=== PATIENT | female | born 1955 | race African-American/Black ===

== ENCOUNTER 2016-10-27 12:19 | Outpatient (CLI) ==
[2016-10-27 12:53] LABS: BASOPHILS % (AUTO) 0.6 % (0.0-3.0); EOSINOPHILS % (AUTO) 0.2 % (0.0-7.0); HEMATOCRIT 39.6 % (37.0-47.0); HEMOGLOBIN 13.9 g/dl (12.0-16.0); IMMATURE GRANULOCYTE % (AUTO) 0.8 % (0.0-5.0); LYMPHOCYTES # (AUTO) 0.9 K/uL (0.60-3.4); MEAN CORPUSCULAR HEMOGLOBIN 31.5 pg (27.0-31.0); MEAN CORPUSCULAR HGB CONC 35.1 (31.8-35.4); MEAN CORPUSCULAR VOLUME 89.8 fl (81.0-99.0); MONOCYTES # (AUTO) 0.7 K/uL (0.4-2.0); MONOCYTES % (AUTO) 13.7 (0-10); NEUTROPHILS # (AUTO) 3.3 K/ul (2.0-6.9); NEUTROPHILS % (AUTO) 66.7; PLATELET COUNT 410 10^3/uL (140-440); RED BLOOD COUNT 4.41 10^6/ul (4.20-5.40); WHITE BLOOD COUNT 4.88 K/ul (4.6-10.2)
[2016-10-27 12:58] LABS: BILIRUBIN,URINE Negative (NEGATIVE); KETONES,URINE Negative (NEGATIVE); LEUKOCYTE ESTERASE ,URINE Negative (NEGATIVE); NITRITE,URINE Negative (NEGATIVE); PH,URINE 5.5 (5-9); PROTEIN,URINE Negative (NEGATIVE); URINE, BLOOD 1+ (NEGATIVE)
[2016-10-27 12:59] LABS: ADD URINE MICROSCOPIC YES
[2016-10-27 13:05] LABS: ALBUMIN 3.9 g/dL (3.4-5.0); ALBUMIN/GLOBULIN RATIO 0.93; ANION GAP 15.3; BILIRUBIN,TOTAL 0.52 mg/dL (0.00-1.20); BUN/CREATININE RATIO 9.33; CALCIUM 9.6 mg/dL (8.2-10.2); CHOL/HDL RATIO 2.7 (4.5-5.5); CREATININE 0.75 mg/dL (0.60-1.30); POTASSIUM 4.3 mmol/L (3.5-5.10); TOTAL PROTEIN 8.1 g/dL (5.8-8.1)
== END 2016-10-27 12:20 | disposition home or self-care (01) ==
LOC: LAB 12:19
PROVIDERS: ATTEND General Practice
DX: I10 Essential (primary) hypertension (principal); M54.5 Low back pain; F10.20 Alcohol dependence, uncomplicated; R31.9 Hematuria, unspecified; D72.819 Decreased white blood cell count, unspecified; D64.9 Anemia, unspecified; D72.821 Monocytosis (symptomatic); E87.1 Hypo-osmolality and hyponatremia; E87.8 Other disorders of electrolyte and fluid balance, not elsewhere classified; M81.0 Age-related osteoporosis without current pathological fracture; F17.200 Nicotine dependence, unspecified, uncomplicated; Z79.899 Other long term (current) drug therapy
CPT/HCPCS: 36415; 80053; 80061; 81001; 85025

== ENCOUNTER 2016-11-03 11:37 | Outpatient (CLI) | END 2016-11-03 11:38 | disposition home or self-care (01) | LOC: LAB 11:37 | PROVIDERS: ATTEND General Practice | DX: R73.9 Hyperglycemia, unspecified (principal); E55.9 Vitamin D deficiency, unspecified | CPT/HCPCS: 36415; 82306; 83036 ==

== ENCOUNTER 2016-11-04 08:14 | Outpatient (CLI) ==
--- NOTE | 2016-11-04 09:20 | US ---
EXAM: Ultrasound retroperitoneal complete. HISTORY: Hematuria. COMPARISON: Abdominal CT 10/22/1989. TECHNIQUE: Multiple bal scale and color Doppler images. FINDINGS: Right kidney measures 11.7 x 4.8 x 4.8 cm. The left kidney measures 10.2 x 5.5 x 4.4 cm. Corticomedullary differentiation is normal. There is no hydronephrosis. Urinary bladder is unremarkable. IMPRESSION: No acute sonographic abnormality of the kidneys or bladder.
== END 2016-11-04 08:15 | disposition home or self-care (01) ==
LOC: RAD 08:14
PROVIDERS: ATTEND General Practice
DX: R31.9 Hematuria, unspecified (principal)
CPT/HCPCS: 76770

== ENCOUNTER 2016-12-30 11:25 | Outpatient (CLI) ==
[2016-12-30 12:42] LABS: BASOPHILS # (AUTO) 0.1 K/uL (0-0.2); BASOPHILS % (AUTO) 1.5 % (0.0-3.0); EOSINOPHILS % (AUTO) 1.2 % (0.0-7.0); HEMOGLOBIN 13.5 g/dl (12.0-16.0); IMMATURE GRANULOCYTE % (AUTO) 0.9 % (0.0-5.0); LYMPHOCYTES # (AUTO) 1.3 K/uL (0.60-3.4); MEAN CORPUSCULAR HEMOGLOBIN 32.1 pg (27.0-31.0); MEAN CORPUSCULAR HGB CONC 35.5 (31.8-35.4); MEAN CORPUSCULAR VOLUME 90.5 fl (81.0-99.0); MONOCYTES # (AUTO) 0.5 K/uL (0.4-2.0); MONOCYTES % (AUTO) 14.2 (0-10); NEUTROPHILS # (AUTO) 1.5 K/ul (2.0-6.9); NEUTROPHILS % (AUTO) 44.2; PLATELET COUNT 370 10^3/uL (140-440); WHITE BLOOD COUNT 3.32 K/ul (4.6-10.2)
[2016-12-30 12:49] LABS: BILIRUBIN,URINE Negative (NEGATIVE); KETONES,URINE Negative (NEGATIVE); LEUKOCYTE ESTERASE ,URINE Negative (NEGATIVE); NITRITE,URINE Negative (NEGATIVE); PROTEIN,URINE Negative (NEGATIVE); URINE, BLOOD Trace-lysed (NEGATIVE)
[2016-12-30 12:55] LABS: ALBUMIN 3.7 g/dL (3.4-5.0); ALBUMIN/GLOBULIN RATIO 0.97; ANION GAP 19.1; BILIRUBIN,TOTAL 0.31 mg/dL (0.00-1.20); BUN/CREATININE RATIO 9.45; CALCIUM 9.6 mg/dL (8.2-10.2); CHOL/HDL RATIO 3.1 (4.5-5.5); CREATININE 0.74 mg/dL (0.60-1.30); POTASSIUM 4.1 mmol/L (3.5-5.10); TOTAL PROTEIN 7.5 g/dL (5.8-8.1)
[2016-12-30 12:59] LABS: ADD URINE MICROSCOPIC YES
== END 2016-12-30 11:26 | disposition home or self-care (01) ==
LOC: LAB 11:25
PROVIDERS: ATTEND General Practice
DX: D64.9 Anemia, unspecified (principal); D72.819 Decreased white blood cell count, unspecified; D72.821 Monocytosis (symptomatic); E87.1 Hypo-osmolality and hyponatremia; E87.8 Other disorders of electrolyte and fluid balance, not elsewhere classified; I10 Essential (primary) hypertension; M54.5 Low back pain; M81.0 Age-related osteoporosis without current pathological fracture; R31.9 Hematuria, unspecified; F10.20 Alcohol dependence, uncomplicated; R53.83 Other fatigue; F17.200 Nicotine dependence, unspecified, uncomplicated; Z79.899 Other long term (current) drug therapy
CPT/HCPCS: 36415; 80053; 80061; 81001; 85025

== ENCOUNTER 2017-02-23 10:33 | Outpatient (CLI) ==
[2017-02-23 14:11] LABS: BILIRUBIN,URINE Negative (NEGATIVE); KETONES,URINE Negative (NEGATIVE); LEUKOCYTE ESTERASE ,URINE Negative (NEGATIVE); NITRITE,URINE Negative (NEGATIVE); PH,URINE 5.5 (5-9); PROTEIN,URINE Negative (NEGATIVE); URINE, BLOOD Trace-lysed (NEGATIVE)
[2017-02-23 15:10] LABS: ADD URINE MICROSCOPIC YES
== END 2017-02-23 10:34 | disposition home or self-care (01) ==
LOC: LAB 10:33
PROVIDERS: ATTEND General Practice
DX: R31.9 Hematuria, unspecified (principal); Z79.899 Other long term (current) drug therapy; M81.0 Age-related osteoporosis without current pathological fracture
CPT/HCPCS: 36415; 81001; 82306

== ENCOUNTER 2017-04-21 12:43 | Outpatient (CLI) ==
[2017-04-21 13:10] LABS: BASOPHILS % (AUTO) 1.6 % (0.0-3.0); EOSINOPHILS # (AUTO) 0.1 K/ul (0.0-0.7); EOSINOPHILS % (AUTO) 5.5 % (0.0-7.0); HEMATOCRIT 36.3 % (37.0-47.0); HEMOGLOBIN 13.2 g/dl (12.0-16.0); IMMATURE GRANULOCYTE % (AUTO) 0.8 % (0.0-5.0); LYMPHOCYTES # (AUTO) 0.9 K/uL (0.60-3.4); LYMPHOCYTES % (AUTO) 36.6 (10.0-50.0); MEAN CORPUSCULAR HEMOGLOBIN 32.5 pg (27.0-31.0); MEAN CORPUSCULAR HGB CONC 36.4 (31.8-35.4); MEAN CORPUSCULAR VOLUME 89.4 fl (81.0-99.0); MONOCYTES # (AUTO) 0.4 K/uL (0.4-2.0); MONOCYTES % (AUTO) 15.7 (0-10); NEUTROPHILS % (AUTO) 39.8; PLATELET COUNT 346 10^3/uL (140-440); RED BLOOD COUNT 4.06 10^6/ul (4.20-5.40); WHITE BLOOD COUNT 2.54 K/ul (4.6-10.2)
[2017-04-21 13:17] LABS: BILIRUBIN,URINE Negative (NEGATIVE); KETONES,URINE Negative (NEGATIVE); LEUKOCYTE ESTERASE ,URINE Negative (NEGATIVE); NITRITE,URINE Negative (NEGATIVE); PROTEIN,URINE Negative (NEGATIVE); URINE, BLOOD Trace-lysed (NEGATIVE)
[2017-04-21 13:31] LABS: ADD URINE MICROSCOPIC YES
[2017-04-21 13:52] LABS: ALBUMIN 3.6 g/dL (3.4-5.0); ALBUMIN/GLOBULIN RATIO 1.09; ANION GAP 17.5; BILIRUBIN,TOTAL 0.57 mg/dL (0.00-1.20); CALCIUM 9.8 mg/dL (8.2-10.2); CREATININE 0.58 mg/dL (0.60-1.30); POTASSIUM 4.5 mmol/L (3.5-5.10); TOTAL PROTEIN 6.9 g/dL (5.8-8.1)
[2017-04-21 13:53] LABS: BUN/CREATININE RATIO 8.62; CHOL/HDL RATIO 2.7 (4.5-5.5)
== END 2017-04-21 12:44 | disposition home or self-care (01) ==
LOC: LAB 12:43
PROVIDERS: ATTEND General Practice
DX: R00.0 Tachycardia, unspecified (principal); M54.5 Low back pain; I10 Essential (primary) hypertension; E78.5 Hyperlipidemia, unspecified; D72.819 Decreased white blood cell count, unspecified; M81.0 Age-related osteoporosis without current pathological fracture; E87.1 Hypo-osmolality and hyponatremia; E87.8 Other disorders of electrolyte and fluid balance, not elsewhere classified; D72.821 Monocytosis (symptomatic); D64.9 Anemia, unspecified; F10.20 Alcohol dependence, uncomplicated; R31.9 Hematuria, unspecified; F17.200 Nicotine dependence, unspecified, uncomplicated
CPT/HCPCS: 36415; 80053; 80061; 81001; 84443; 85025

== ENCOUNTER 2017-07-20 10:19 | Outpatient (CLI) ==
[2017-07-20 10:41] LABS: BASOPHILS % (AUTO) 1.1 % (0.0-3.0); EOSINOPHILS % (AUTO) 0.8 % (0.0-7.0); HEMATOCRIT 37.2 % (37.0-47.0); HEMOGLOBIN 13.6 g/dl (12.0-16.0); IMMATURE GRANULOCYTE % (AUTO) 0.5 % (0.0-5.0); LYMPHOCYTES # (AUTO) 0.9 K/uL (0.60-3.4); LYMPHOCYTES % (AUTO) 22.9 (10.0-50.0); MEAN CORPUSCULAR HEMOGLOBIN 33.2 pg (27.0-31.0); MEAN CORPUSCULAR HGB CONC 36.6 (31.8-35.4); MEAN CORPUSCULAR VOLUME 90.7 fl (81.0-99.0); MONOCYTES # (AUTO) 0.6 K/uL (0.4-2.0); MONOCYTES % (AUTO) 15.2 (0-10); NEUTROPHILS # (AUTO) 2.2 K/ul (2.0-6.9); NEUTROPHILS % (AUTO) 59.5; PLATELET COUNT 347 10^3/uL (140-440); WHITE BLOOD COUNT 3.76 K/ul (4.6-10.2)
== END 2017-07-20 10:20 | disposition home or self-care (01) ==
LOC: LAB 10:19
PROVIDERS: ATTEND General Practice
DX: D72.819 Decreased white blood cell count, unspecified (principal)
CPT/HCPCS: 36415; 85025

== ENCOUNTER 2017-09-21 13:08 | Outpatient (CLI) | END 2017-09-21 13:09 | disposition home or self-care (01) | LOC: LAB 13:08 | PROVIDERS: ATTEND General Practice | DX: E78.5 Hyperlipidemia, unspecified (principal); I10 Essential (primary) hypertension; Z79.899 Other long term (current) drug therapy | CPT/HCPCS: 36415; 80053; 80061; 81001; 85025; 87086 ==

== ENCOUNTER 2017-11-19 13:17 | Outpatient (CLI) | END 2017-11-19 13:18 | disposition home or self-care (01) | LOC: FCC-LAB 13:17 | PROVIDERS: ATTEND General Practice | DX: R74.0 Nonspecific elevation of levels of transaminase and lactic acid dehydrogenase [LDH] (principal); D64.9 Anemia, unspecified; D72.819 Decreased white blood cell count, unspecified; F10.20 Alcohol dependence, uncomplicated; F11.90 Opioid use, unspecified, uncomplicated | CPT/HCPCS: 36415; 80076; 80306; 85025 ==

== ENCOUNTER 2018-01-13 10:25 | Outpatient (CLI) | END 2018-01-13 10:26 | disposition home or self-care (01) | LOC: FCC-LAB 10:25 | PROVIDERS: ATTEND General Practice | DX: D64.9 Anemia, unspecified (principal); D72.821 Monocytosis (symptomatic); E87.8 Other disorders of electrolyte and fluid balance, not elsewhere classified; E87.1 Hypo-osmolality and hyponatremia; M54.5 Low back pain; M81.0 Age-related osteoporosis without current pathological fracture; I10 Essential (primary) hypertension; Z79.899 Other long term (current) drug therapy | CPT/HCPCS: 36415; 80053; 80061; 81001; 84443; 85025; 87086 ==

== ENCOUNTER 2018-03-22 09:22 | Outpatient (CLI) | END 2018-03-22 09:23 | disposition home or self-care (01) | LOC: FCC-LAB 09:22 | PROVIDERS: ATTEND General Practice | DX: R31.9 Hematuria, unspecified (principal); D72.819 Decreased white blood cell count, unspecified; D64.9 Anemia, unspecified; D72.821 Monocytosis (symptomatic); E87.8 Other disorders of electrolyte and fluid balance, not elsewhere classified; E87.1 Hypo-osmolality and hyponatremia; I10 Essential (primary) hypertension; Z79.899 Other long term (current) drug therapy | CPT/HCPCS: 36415; 80053; 80061; 81001; 85025; 87086 ==

== ENCOUNTER 2018-06-22 08:14 | Outpatient (CLI) ==
--- NOTE | 2018-06-23 08:52 | MAMMO ---
EXAM: Bilateral digital screening mammogram (2-D and 3-D) History: Screening Comparison: Bilateral mammogram 06/19/2017 Findings: MLO and CC views of bilateral breasts demonstrate heterogeneously dense breast parenchyma which can obscure small lesions. CAD was reviewed by the radiologist. Tomosynthesis was performed. Postoperative changes again seen within the left breast. There are no dominant masses, no suspiciou s microcalcifications and no architectural distortions Impression: Benign stable mammogram. Recommend followup routine screening mammography in 1 year. BIRADS 2
== END 2018-06-22 08:15 | disposition home or self-care (01) ==
LOC: RAD 08:14
PROVIDERS: ATTEND Internal Medicine Hematology & Oncology
DX: Z12.31 Encounter for screening mammogram for malignant neoplasm of breast (principal)

== ENCOUNTER 2018-06-28 09:31 | Outpatient (CLI) | END 2018-06-28 09:32 | disposition home or self-care (01) | LOC: RHC-LAB 09:31 | PROVIDERS: ATTEND General Practice | DX: R31.9 Hematuria, unspecified (principal); E78.5 Hyperlipidemia, unspecified | CPT/HCPCS: 36415; 80053; 80061; 81001; 85025 ==

== ENCOUNTER 2018-08-30 08:15 | Outpatient (CLI) | END 2018-08-30 08:16 | disposition home or self-care (01) | LOC: RHC-LAB 08:15 | PROVIDERS: ATTEND General Practice | DX: D72.819 Decreased white blood cell count, unspecified (principal); D64.9 Anemia, unspecified; D72.821 Monocytosis (symptomatic); I10 Essential (primary) hypertension; F17.200 Nicotine dependence, unspecified, uncomplicated; Z79.899 Other long term (current) drug therapy | CPT/HCPCS: 36415; 80053; 80061; 81001; 85025 ==

== ENCOUNTER 2018-09-24 11:32 | Outpatient (CLI) | END 2018-09-24 11:33 | disposition home or self-care (01) | LOC: RHC-LAB 11:32 | PROVIDERS: ATTEND General Practice | DX: R05 Cough (principal); J02.9 Acute pharyngitis, unspecified | CPT/HCPCS: 87502; 87651 ==

== ENCOUNTER 2018-10-13 06:41 | Outpatient (CLI) ==
--- NOTE | 2018-10-13 09:29 | ECHO2D ---
Date of Exam: 10/13/18 Ordering Physician:DR. KULWINDER WHITLEY Room #: OP Reason for Echo: CARDIAC MURMUR, HYPERTENSION M-Mode Normal Adult Results LV Dimensions Normal Adult Results AoV Opening excursions >1.6 >1.6 LVEDD-base- 3.5-5.8 4.1 Ao root dimensions 2.0-3.7 3.2 LVESD-base- 3.1-4.6 L. Atrium dimensions 1.9-3.8 3.2 Post. Wall thickness 0.8-1.1 0.9 IV septum (thickness) 0.7-1.2 0.9 Post. Wall excursion 0.72-1.3 NORMAL Septal motion NORMAL Systolic motion R. Ventricular cavity 1.5-2.0 NORMAL LVEF 60% 50% Paradoxical septal wall motion NORMAL 2-D : 2-D M Mode Echocardiogram was performed using apical four chamber and left parasternal long and short axis views. Mitral, tricuspid and aortic valves appear to be normal. Contractility of the left ventricle seems to be normal, so is the cavity size. Left atrial cavity size and aortic root appear to be normal. There is no pericardial effusion. There is no thrombus noted in the left ventricular or left aortic cavity. No mitral valve prolapse noted. M-MODE: MV: NORMAL AV: NORMAL TV: NORMAL PV: CHAMBER SIZE: NORMAL WALL MOTION: NORMAL PERICARDIUM: NORMAL INTERPRETATION: 1. NORMAL 2 "D" "M" MODE ECHO MTDD
== END 2018-10-13 06:42 | disposition home or self-care (01) ==
LOC: CAR 06:41
PROVIDERS: ATTEND General Practice
DX: R01.1 Cardiac murmur, unspecified (principal)

== ENCOUNTER 2018-12-20 09:02 | Outpatient (CLI) | END 2018-12-20 09:03 | disposition home or self-care (01) | LOC: RHC-LAB 09:02 | PROVIDERS: ATTEND General Practice | DX: D72.819 Decreased white blood cell count, unspecified (principal); D64.9 Anemia, unspecified; Z79.899 Other long term (current) drug therapy | CPT/HCPCS: 36415; 80053; 80061; 85025 ==

== ENCOUNTER 2023-02-01 16:24 | Observation (INO) ==
[2023-02-01] MEDS ORDERED: ZOFRAN 4 MG/2 ML IVP ONE (16:35)
[2023-02-01] MEDS ORDERED: SODIUM CHLORIDE 1,000 ML IV STA ×3 (16:35→21:32)
--- NOTE | 2023-02-01 16:39 | ED.PDOC ---
General <SARAH KILPATRICK MD - Last Filed: 02/02/23 06:27> ED Provider: Dr. SARAH KILPATRICK MD Chief Complaint: Weakness Stated Complaint: I think I'm dehydrated 67-year-old female presents the emergency department over concerns of dehydration. She reports that she woke up [place] with an upset stomach. She states that she has had 1 episode of diarrhea and multiple episodes of emesis. Her son got her electrolytes and Pedialyte. She states she was doing better, but when she wakes up from a nap she continues to have abdominal pain. Points to her left upper quadrant. States she feels very weak. States she cannot keep anything down. She tried to ride it out at home but ultimately decided to come to the ER for further evaluation. Denies any chest pain or difficulty b reathing. No cough. No pain with urination. Time Seen by Provider: 02/01/23 16:35 Mode of Arrival: Walk-In Information Source: Patient Primary Care Provider: MAC MCADAMS APRN, FNP-C Nursing and Triage Documentation Reviewed and Agree: Yes Does patient meet sepsis criteria?: No System Inflammatory Response Syndrome: Not Applicable Sepsis Protocol: For patient's 13 years and over: Temp is 96.8 and below OR 101 and greater Pulse >90 BPM Resp >20/minute Acutely Altered Mental Status Are patient's symptoms suggestive of a new infection, such as: -Pneumonia -Skin, Soft Tissue -Endocarditis -UTI -Bone, Joint Infection -Implantable Device -Acute Abdominal Infection -Wound Infection -Meningitis -Blood Stream Catheter Infection -Unknown Review of Systems <SARAH KILPATRICK MD - Last Filed: 02/02/23 06:27> Review Of Systems Constitutional: Reports Weakness GI: Reports Abdominal pain, Diarrhea, Nausea, Poor fluid intake and Vomiting All Other Systems: Reviewed and Negative PFSH <SARAH KILPATRICK MD - Last Filed: 02/02/23 06:27> Medical History (Updated 02/02/23 @ 14:25 by YARELIS AVILEZ-C) Anemia D64.9 - Anemia, unspecified (ICD-10) Breast CA C50.919 - Malignant neoplasm of unspecified site of unspecified female charito ast (ICD-10) Dyslipidemia (01/01/17) E78.5 - Hyperlipidemia, unspecified (ICD-10) Essential hypertension (12/10/15) I10 - Essential (primary) hypertension (ICD-10) GERD (gastroesophageal reflux disease) (05/14/17) K21.9 - Gastro-esophageal reflux disease without esophagitis (ICD-10) Hyponatremia (08/09/15) E87.1 - Hypo-osmolality and hyponatremia (ICD-10) Osteoporosis (09/26/15) M81.0 - Age-related osteoporosis without current pathological fracture (ICD- 10) Pancreatitis K85.90 - Acute pancreatitis without necrosis or infection, unspecified (ICD- 10) Vitamin B 12 deficiency E53.8 - Deficiency of other specified B group vitamins (ICD-10) Family History Mother Diabetes Heart attack FATHER Diabetes Heart attack Social History Smoking and tobacco status: Current every day smoker Tobacco type: cigarettes Smoking packs per day: 1 Tobacco: How many years used: 9 Quit status: not considering quitting Smoking risk assessment performed: Yes Alcohol intake: current Alcohol intake frequency: 3 or more drinks per day Alcohol type: beer Counseling given: No Substance use type: does not use Counseling given: No Ashley/caodaism: HOAHAOISM Special ashley needs: No Agree to transfusion: Yes Household members: none Marital status: W / Lives independently: Yes Number of children: 1 Number of grandchildren: 4 Highest education level completed: some college, no degree service: No Current occupational status: retired and disabled Current occupational exposures/hazards: No Pets and animals: Yes (one cat and one dog) History of recent travel: No Sexually active: No Do you think of yourself as: straight/heterosexual Current gender identity: female Seatbelt use: always Water heater temperature set < 120 degrees: Yes Working smoke detector in home: Yes Fire extinguisher in home: Yes Carbon monoxide detector in home: Yes Firearms in home: No Surgical History H/O cataract extraction Z98.49 - Cataract extraction status, unspecified eye (ICD-10) History of breast biopsy Z98.890 - Other specified postprocedural states (ICD-10) Status post hysterectomy Z90.710 - Acquired absence of both cervix and uterus (ICD-10) Female Reproductive History Menstrual Age of Menarche: 12 Hx Hysterectomy: Yes (hysterectomy approx 12/31/2010) Hx Tubal Ligation: No Physical Exam <SARAH KILPATRICK MD - Last Filed: 02/02/23 06:27> Physical Exam Appearance: Reports Well-appearing Ill-appearing: None Pain Distress: None Eyes: Reports EOMI ENT: Reports Oropharynx normal Neck: Supple Respiratory: Reports Airway patent Cardiovascular: Reports Tachycardia GI/: Reports Soft and Tender (RUQ, epigastrum TTP, no rebound or guarding) Musculoskeletal: Reports No edema Skin: Reports Warm and Dry Neurological: Reports Cranial nerves intact, Alert and Oriented Psychiatric: Reports Affect appropriate Interpretation <SARAH KILPATRICK MD - Last Filed: 02/02/23 06:27> EKG Interpretation EKG Interpretation By: ED Physician Time of EKG #1: 20:46 Rate: Normal (92) Rhythm: Sinus Ectopy: None [place]: NL ST Segment: Normal Interpretation: EKG ordered and interpreted by ut Critical Care Note <SARAH KILPATRICK MD - Last Filed: 02/02/23 06:27> Critical Care Note Total Critical Care Time (mins): 50 Course <SARAH KILPATRICK MD - Last Filed: 02/02/23 06:27> Course 02/03/23 04:50 02/03/23 04:50 Orders, Labs, Meds: Lab Review 02/01/23 02/01/23 02/01/23 16:40 16:45 22:00 WBC 21.75 H RBC 4.75 Hgb 14.7 Hct 41.6 MCV 87.6 MCH 30.9 MCHC 35.3 RDW Coeff of Jesus 13.1 Plt Count 377 Immature Gran % (Auto) 1.0 Neut % (Auto) 89.6 H Lymph % (Auto) 3.2 L Isabela % (Auto) 5.5 Eos % (Auto) 0.5 Baso % (Auto) 0.2 Neut # (Auto) 19.5 H Lymph # (Auto) 0.7 Isabela # (Auto) 1.2 Eos # (Auto) 0.1 Baso # (Auto) 0.0 Immature Gran # (Auto) 0.2 Neutrophils % (Manual) Lymphocytes % (Manual) Monocytes % (Manual) Anisocytosis Sodium 123.2 L Potassium 3.07 L Chloride 84.6 L Carbon Dioxide 30.3 H Anion Gap 11.37 BUN 5.4 L Creatinine 0.45 L Estimated GFR (MDRD) 168.00 BUN/Creatinine Ratio 12.00 Glucose 133.2 H Lactic Acid 3.83 H 1.19 D Calcium 8.59 Magnesium Total Bilirubin 0.72 AST 42.9 H ALT 41.3 H Alkaline Phosphatase 117.2 C-Reactive Prot, Quant 172 H Total Protein 8.20 Albumin 4.22 Globulin 3.98 Albumin/Globulin Ratio 1.06 Lipase 676.3 H Procalcitonin 1.65 H Urine Color Yellow Urine Clarity Clear Urine pH 7.5 Ur Specific [place] 1.015 Urine Protein 2+ H Urine Glucose (UA) Negative Urine Ketones Negative Urine Blood 2+ H Urine Nitrite Negative Urine Bilirubin Negative Urine Urobilinogen 0.2 Ur Leukocyte Esterase 1+ H Urine Microscopic RBC 0-2 Urine Microscopic WBC 5-10 Ur Squamous Epith Cells 0-2 Ur Renal Epithelial Cell 2-5 Urine Bacteria Trace 02/02/23 07:09 WBC 13.66 H D RBC 4.11 L Hgb 12.6 Hct 36.2 L MCV 88.1 MCH 30.7 MCHC 34.8 RDW Coeff of Jesus 13.2 Plt Count 318 Immature Gran % (Auto) Neut % (Auto) Lymph % (Auto) Isabela % (Auto) Eos % (Auto) Baso % (Auto) Neut # (Auto) Lymph # (Auto) Isabela # (Auto) Eos # (Auto) Baso # (Auto) Immature Gran # (Auto) Neutrophils % (Manual) 85.0 H Lymphocytes % (Manual) 5.0 L Monocytes % (Manual) 10.0 Anisocytosis Not present Sodium 127.5 L Potassium 2.54 L* Chloride 94.8 L Carbon Dioxide 30.7 H Anion Gap 4.54 BUN 2.7 L Creatinine 0.39 L Estimated GFR (MDRD) 198.00 BUN/Creatinine Ratio 6.92 Glucose 83.7 Lactic Acid 0.76 D Calcium 7.27 L Magnesium 1.30 L Total Bilirubin 1.07 AST 38.7 H ALT 17.2 Alkaline Phosphatase 117.2 C-Reactive Prot, Quant Total Protein 6.56 Albumin 3.24 L Globulin 3.32 Albumin/Globulin Ratio 0.97 Lipase Procalcitonin 0.96 H Urine Color Urine Clarity Urine pH Ur Specific [place] Urine Protein Urine Glucose (UA) Urine Ketones Urine Blood Urine Nitrite Urine Bilirubin Urine Urobilinogen Ur Leukocyte Esterase Urine Microscopic RBC Urine Microscopic WBC Ur Squamous Epith Cells Ur Renal Epithelial Cell Urine Bacteria Orders Category Date Time Status PLACE PATIENT OBSERVATION .TO MEDSURG (MONITORED BED ADMISSION 02/02/23 09:51 Active ) BLOOD GLUCOSE MONITORING (MED/SURG) ACCUCHECK Q6H CARE 02/02/23 09:51 Active INTAKE & OUTPUT Q8HR CARE 02/02/23 09:50 Active NPO REMINDER: IMAGING ONCE CARE 02/01/23 16:57 Completed NPO REMINDER: IMAGING ONCE CARE 02/02/23 00:14 Completed TELEMETRY MONITORING TELE CARE 02/02/23 09:52 Active VITAL SIGNS Q4HR CARE 02/02/23 09:50 Active NOTHING BY MOUTH DIETARY 02/02/23 Lunch Ordered ED IV/MEDIPORT/POWERPORT .ONCE EMERGENCY 02/01/23 16:29 Active BLOOD CULTURE (ED ONLY) Stat LAB 02/01/23 18:10 Results C-REACTIVE PROTEIN Stat LAB 02/01/23 16:45 Completed CBC W/ AUTO DIFF DAILY@0600 LAB 02/03/23 04:50 Completed CBC W/ AUTO DIFF DAILY@0600 LAB 02/04/23 06:00 Ordered CBC W/ AUTO DIFF Stat LAB 02/01/23 16:45 Completed CBC W/ AUTO DIFF Timed LAB 02/02/23 07:09 Completed CMP [COMPREHENSIVE METABOLIC PANEL] Stat LAB 02/01/23 16:45 Completed CMP [COMPREHENSIVE METABOLIC PANEL] Stat LAB 02/02/23 07:09 Completed COMPREHENSIVE METABOLIC PANEL DAILY@0600 LAB 02/03/23 04:50 Completed COMPREHENSIVE METABOLIC PANEL DAILY@0600 LAB 02/04/23 06:00 Ordered LACTIC ACID Stat LAB 02/01/23 16:45 Completed LACTIC ACID Stat LAB 02/01/23 22:00 Completed LACTIC ACID Stat LAB 02/02/23 07:09 Completed LIPASE Stat LAB 02/01/23 16:45 Completed MAGNESIUM Stat LAB 02/02/23 07:09 Completed MANUAL DIFFERENTIAL Timed LAB 02/02/23 07:09 Completed PROCALCITONIN Stat LAB 02/01/23 16:45 Completed PROCALCITONIN Stat LAB 02/02/23 07:09 Completed UA [URINALYSIS C & S IF INDICATED] Stat LAB 02/01/23 16:40 Completed URINE CULTURE Stat LAB 02/01/23 16:59 Completed 0.9 % Sodium Chloride [Saline Flush] Meds 02/01/23 16:29 Active 1 syr IVF PRN PRN Acetaminophen [Tylenol] Meds 02/02/23 09:51 Active 650 mg PO Q4H PRN Enoxaparin Sodium [Lovenox] Meds 02/02/23 10:00 Active 30 mg SUBCUT DAILY Fentanyl Citrate/Pf [Sublimaze] Meds 02/01/23 18:26 Discontinued 50 mcg IVP ONCE ONE Magnesium Sulfate Vial [Magnesium Sulfate 1 gm/2 ml Meds 02/02/23 07:47 Discontinued Vial] 6 gm 0.9 % Sodium Chloride [Sodium Chloride 100Ml] 100 ml IV ONCE Magnesium Sulfate in Water [Magnesium Sulf 2 G/50 ml Meds 02/02/23 07:54 Discontinued Bag] 2 gm in 50 ml IV ONCE Metoclopramide HCl [Reglan] Meds 02/02/23 09:54 Active 10 mg IVP Q6H PRN Morphine Sulfate [Morphine 10 mg/ml Syringe] Meds 02/01/23 21:30 Discontinued 8 mg IVP ONCE STA Morphine Sulfate [Morphine 10 mg/ml Syringe] Meds 02/02/23 03:39 Discontinued 8 mg IVP ONCE STA Nicotine 21 mg [Nicoderm 21 mg] Meds 02/01/23 17:46 Discontinued 1 patch TD ONCE ONE Nicotine 21 mg [Nicoderm 21 mg] Meds 02/02/23 09:37 Discontinued 1 patch TD ONCE ONE Nictotine Patch Meds 02/02/23 09:33 Discontinued 21 mg TD ONCE ONE Ondansetron HCl/Pf [Zofran 4 mg/2 ml] Meds 02/01/23 16:35 Discontinued 4 mg IVP ONCE ONE Ondansetron HCl/Pf [Zofran 4 mg/2 ml] Meds 02/01/23 21:30 Discontinued 4 mg IVP ONCE ONE Ondansetron HCl/Pf [Zofran 4 mg/2 ml] Meds 02/02/23 02:37 Discontinued 4 mg IVP ONCE ONE Ondansetron HCl/Pf [Zofran 4 mg/2 ml] Meds 02/02/23 09:54 Active 4 mg IVP Q6H PRN Piperacillin Sodium/Tazobactam [Zosyn 3.375 gm] 3.375 Meds 02/01/23 18:31 Discontinued gm 0.9 % Sodium Chloride [Sodium Chloride 100Ml] 100 ml IV ONCE Piperacillin Sodium/Tazobactam [Zosyn 3.375 gm] 3.375 Meds 02/02/23 12:00 Active gm 0.9 % Sodium Chloride [Sodium Chloride 100Ml] 100 ml IV Q6HR Potassium Chloride [Potassium Chloride 20 Meq/100 ml Meds 02/02/23 07:47 Discontinued Premix] 20 meq in 100 ml IV ONCE Sodium Chloride 0.9% [Sodium Chloride] 1,000 ml Meds 02/02/23 10:00 Discontinued IV 100 mls/hr Sodium Chloride 0.9% [Sodium Chloride] 1,000 ml Meds 02/01/23 21:32 Discontinued IV 150 mls/hr Sodium Chloride 0.9% [Sodium Chloride] 1,000 ml Meds 02/02/23 03:54 Discontinued IV 150 mls/hr Sodium Chloride 0.9% [Sodium Chloride] 1,000 ml Meds 02/01/23 16:35 Discontinued IV BOLUS Sodium Chloride 0.9% [Sodium Chloride] 1,000 ml Meds 02/01/23 17:[address] ABDOMEN/PELVIS W CONTRAST Stat RADS 02/01/23 16:57 Completed US ABDOMEN RT UPPER QUAD [U/S ABDOMEN RT UPPER QUAD] RADS 02/02/23 00:14 Completed Stat Medications Generic Name Dose Route Start Last Admin Trade Name Freq PRN Reason Stop Dose Admin Acetaminophen 650 mg 02/02/23 09:51 Acetaminophen 325 Mg Tablet PO Q4H PRN Mild Pain Enoxaparin Sodium 30 mg 02/02/23 10:00 02/02/23 12:29 Enoxaparin Sodium 30 Mg/0.3 Ml Syr SUBCUT 30 mg DAILY ELIAN Administration Piperacillin Sod/Tazobactam 100 mls @ 100 mls/hr 02/02/23 12:00 02/03/23 05:33 Sod 3.375 gm/ Sodium Chloride IV 02/05/23 11:59 100 mls/hr Q6HR ELIAN Administration Potassium Chloride/Dextrose/Sod Cl 1,000 mls @ 100 mls/hr 02/03/23 07:30 D5%-Ns-Kcl 40 Meq/L Iv Gwendolyn IV .Q10H ELIAN Losartan Potassium 100 mg 02/02/23 13:30 02/02/23 15:20 Losartan Potassium 100 Mg Tablet PO 100 mg DAILY ELIAN Administration Metoclopramide HCl 10 mg 02/02/23 09:54 Metoclopramide Hcl 10 Mg/2 Ml IVP Q6H PRN Nausea / Vomiting Morphine Sulfate 2 mg 02/02/23 12:53 02/03/23 07:29 Morphine Sulfate 2 Mg/Ml Syringe IVP 2 mg Q4H PRN Administration MODERATE PAIN Nicotine 1 patch 02/02/23 15:00 02/02/23 15:20 Nicotine 21 Mg Patch.Td24 TD 1 patch DAILY ELIAN Administration Ondansetron HCl 4 mg 02/02/23 09:54 Ondansetron Hcl/Pf 4 Mg/2 Ml Sdv IVP Q6H PRN Nausea / Vomiting Sodium Chloride 1 syr 02/01/23 16:29 02/02/23 02:43 0.9% Sodium Chloride 10 Ml Disp.Syrin IVF 1 syr PRN PRN Administration To flush IV Discontinued Medications Generic Name Dose Route Start Last Admin Trade Name Freq PRN Reason Stop Dose Admin Dextrose 50 ml 02/02/23 22:19 02/02/23 22:49 Dextrose 50 % In Water 50 Ml Disp.Syrin IVP 02/02/23 22:20 50 ml ONCE STA Administration Fentanyl Citrate 50 mcg 02/01/23 18:26 02/01/23 18:39 Fentanyl 50 Mcg/Ml Sdv IVP 02/01/23 18:27 50 mcg ONCE ONE Administration Sodium Chloride 1,000 mls @ 1,000 mls/hr 02/01/23 16:35 02/01/23 16:55 Sodium Chloride IV 02/01/23 17:34 1,000 mls/hr BOLUS STA Administration Sodium Chloride 1,000 mls @ 1,000 mls/hr 02/01/23 17:53 02/01/23 18:20 Sodium Chloride IV 02/01/23 18:52 1,000 mls/hr BOLUS STA Administration Piperacillin Sod/Tazobactam 100 mls @ 100 mls/hr 02/01/23 18:31 02/01/23 18:43 Sod 3.375 gm/ Sodium Chloride IV 02/01/23 19:30 100 mls/hr ONCE ONE Administration Sodium Chloride 1,000 mls @ 150 mls/hr 02/01/23 21:32 02/01/23 21:41 Sodium Chloride IV 02/02/23 04:11 150 mls/hr .Q6H40M STA Administration Sodium Chloride 1,000 mls @ 150 mls/hr 02/02/23 03:54 02/02/23 03:54 Sodium Chloride IV 02/02/23 10:33 150 mls/hr .Q6H40M ONE Administration Magnesium Sulfate 6 gm/ Sodium 112 mls @ 400 mls/hr 02/02/23 07:47 02/02/23 09:31 Chloride IV 02/02/23 08:03 Not Given ONCE ONE Potassium Chloride 20 meq in 100 mls @ 50 mls/hr 02/02/23 07:47 02/02/23 08:00 Potassium Chloride 20 Meq/100 Ml Premix IV 02/02/23 09:46 50 mls/hr ONCE ONE Administration MAGNESIUM SULFATE IN WATER 2 gm in 50 mls @ 25 mls/hr 02/02/23 07:54 02/02/23 08:21 Magnesium Sulf 2 G/50 Ml Bag IV 02/02/23 09:53 25 mls/hr ONCE ONE Administration Sodium Chloride 1,000 mls @ 100 mls/hr 02/02/23 10:00 02/02/23 13:59 Sodium Chloride IV Not Given .Q10H ELIAN Sodium Chloride 1,000 mls @ 200 mls/hr 02/02/23 12:27 02/02/23 18:14 Sodium Chloride IV 200 mls/hr .Q5H ELIAN Administration Potassium Chloride 40 meq in 200 mls @ 50 mls/hr 02/02/23 15:05 02/02/23 15:52 Potassium Chloride 20 Meq/100 Ml Premix IV 02/02/23 19:04 50 mls/hr ONCE ONE Administration Sodium Chloride 1,000 mls @ 100 mls/hr 02/02/23 18:18 02/02/23 20:01 Sodium Chloride IV Not Given .Q10H ELIAN Dextrose/Sodium Chloride 1,000 mls @ 100 mls/hr 02/02/23 22:30 02/02/23 22:50 Dextrose 5%-Ns Iv Solution IV 100 mls/hr .Q10H ELIAN Administration Potassium Chloride 20 meq in 100 mls @ 50 mls/hr 02/03/23 05:38 02/03/23 06:07 Potassium Chloride 20 Meq/100 Ml Premix IV 02/03/23 07:37 50 mls/hr ONCE ONE Administration Losartan Potassium 0 mg 02/02/23 13:00 02/02/23 13:59 Losartan Potassium 100 Mg Tablet PO Not Given DAILY ELIAN Morphine Sulfate 8 mg 02/01/23 21:30 02/01/23 21:46 Morphine Sulfate 10 Mg/Ml Syringe IVP 02/01/23 21:31 8 mg ONCE STA Administration Morphine Sulfate 8 mg 02/02/23 03:39 02/02/23 03:50 Morphine Sulfate 10 Mg/Ml Syringe IVP 02/02/23 03:40 8 mg ONCE STA Administration Nicotine 1 patch 02/01/23 17:46 02/01/23 17:55 Nicotine 21 Mg Patch.Td24 TD 02/01/23 17:47 1 patch ONCE ONE Administration Nicotine 1 patch 02/02/23 09:37 02/02/23 09:39 Nicotine 21 Mg Patch.Td24 TD 02/02/23 09:38 1 patch ONCE ONE Administration Non-Formulary Medication 21 mg 02/02/23 09:33 02/02/23 15:50 Nictotine Patch TD 02/02/23 09:34 Not Given ONCE ONE Ondansetron HCl 4 mg 02/01/23 16:35 02/01/23 16:56 Ondansetron Hcl/Pf 4 Mg/2 Ml Sdv IVP 02/01/23 16:36 4 mg ONCE ONE Administration Ondansetron HCl 4 mg 02/01/23 21:30 02/01/23 21:45 Ondansetron Hcl/Pf 4 Mg/2 Ml Sdv IVP 02/01/23 21:31 4 mg ONCE ONE Administration Ondansetron HCl 4 mg 02/02/23 02:37 02/02/23 02:43 Ondansetron Hcl/Pf 4 Mg/2 Ml Sdv IVP 02/02/23 02:38 4 mg ONCE ONE Administration Potassium Chloride 40 meq 02/02/23 15:06 02/02/23 16:43 Potassium Chloride 20 Meq Tab PO 02/02/23 15:07 Not Given ONCE ONE Differential diagnosis includes dehydration, electrolyte disturbance, acute kidney injury, urinary tract infection, viral infection, pancreatitis, bowel obstruction, gastritis Plan to hydrate the patient with IV fluids. She is tachycardic. We will also check basic labs, urinalysis. Will provide Zofran. 6:05 PM. Patient's work-up to this point is complete. Patient with a leukocytosis to 21,000, hyponatremia, hypokalemia, elevated lipase to 690. LFTs grossly unremarkable. CT scan shows chronic pancreatitis changes but nothing acute. She does have an enlarged and elongated gallbladder but no evidence of inflammation around the gallbladder. Patient given 2 L normal saline in the emergency department as well as Zofran. No further vomiting. At this point I believe the patient would benefit from admission to the hospital for hydration, antibiotics, nausea and vomiting control. 6:38 PM Patient with leukocytosis, tachycardia, elevated lactic acid. Patient with severe sepsis. Zosyn ordered for presumed intra-abdominal infection. Reexamined and patient initially did not have right upper quadrant pain, but now does have pain on examination. No rebound or guarding. She continues to have epigastric pain. CT scan shows an elongated and enlarged gallbladder. I suspect this could be the etiology of her leukocytosis and pain. Case was disc ussed with the on-call hospitalist team. We do not have capacity for surgical intervention here. We anticipate that this patient may require surgical intervention due to the 5 mm stone in the pancreatic duct with ductal dilatation. Patient could require an ERCP.. I would like to transfer to higher level of care for more specialty service. Patient was made aware of this is an agreeable. She prefers [facility]. [facility] paged at 6:35 PM. 6:44 PM. Vital signs show temperature increasing, 100.1. She has not reached a level of fever but she came in at 98.9. 7:36 PM [facility] paged again. Awaiting callback. 7:54 PM At the brief opportunity to speak with Dr. Cary, hospitalist at [facility]. They do not have ERCP capability. 8:30 PM Case was discussed with assembly line robot operator at [facility]. He states that while his partner does do ERCP they do not do pancreatic procedures. He believes that she does need to have the stone removed from her pancreatic duct, however that requires a higher level of care than what they are capable of providing. He recommends [place]. Family was notified of this and we will initiate transfer to a [facility] facility. 9:15 PM Case discussed with Dr. Lopez from [facility]. He is a assembly line robot operator who performs ERCP and performs ERCP on the pancreas. He states that the patient does not need an ERCP. She needs to be treated as standard pancreatitis with hydration and pain control. He states that the wait at their hospital is several days for any type of bed. Even when she did receive a bed they would still not be performing an ERCP on her. His recommendation is hydration, pain control. In light of this information, we will contact [facility], a more local hospital and arrange for hospitalization. 9:27 PM Case discussed with Dr. Walker, interventional GI from [facility]. His recommendation is to treat as pancreatitis. Once the acute phase is over she will need an MRCP and then possibly an ERCP. However at this time he will not do any intervention but he does recommend transfer to their facility so that they can monitor her course. 9:31 PM Patient has been accepted by hospitalist Dr. Babb. They inform me that the wait will likely be "days". Case discussed with our hospitalist team to see if she can be admitted to our facility. Because of the elevated white blood cell count, epigastric and right upper quadrant pain and the distended and elongated gallbladder they would like for her to have an ultrasound prior to excepting her to our facility. We do not have ultrasound capacity after hours. However in the morning we will be able to order an ultrasound. At that point, if the ultrasound is normal and her repeat labs are still reassuring they will admit her to our facility while she waits for a bed at [facility]. However, if her ultrasound is abnormal, or her labs are trending in the wrong direction we will need to initiate transfer for higher level of care including surgical specialty. Family was updated on this plan and understand. We will keep her pain under control and keep her hydrated overnight while we wait for the next phase of testing. 10:37 PM Repeat lactic acid has normalized to less than 1.2. Patient has received 2 L of normal saline and has 150 cc/h infusing. Pain is well controlled at this time. We will continue to monitor. Plan for ultrasound in the morning and repeat labs. 6:26 AM Patient reexamined. Continues to have right upper quadrant pain. States that the pain was more central and left-sided earlier yesterday, but as the time is progressed it is more concentrated on the right upper quadrant side. Awaiting ultrasound and laboratory redraw. Anticipate that she might need surgical intervention rather than gastroenterology. However repeat lab and ultrasonography will dictate her course. Vital Signs: Temp Pulse Resp BP Pulse Ox 02/02/23 06:00 101 H 16 161/96 H 96 02/02/23 04:05 104 H 16 157/96 H 97 02/02/23 02:02 100 22 H 167/92 H 98 02/01/23 19:17 98.8 F 103 H 17 164/101 H 96 02/01/23 16:29 98.9 F 127 H 20 148/95 H 96 <CURTIS QUINTEROS MD - Last Filed: 02/03/23 08:29> Course Orders, Labs, Meds: Lab Review 02/01/23 02/01/23 02/01/23 16:40 16:45 22:00 WBC 21.75 H RBC 4.75 Hgb 14.7 Hct 41.6 MCV 87.6 MCH 30.9 MCHC 35.3 RDW Coeff of Jesus 13.1 Plt Count 377 Immature Gran % (Auto) 1.0 Neut % (Auto) 89.6 H Lymph % (Auto) 3.2 L Isabela % (Auto) 5.5 Eos % (Auto) 0.5 Baso % (Auto) 0.2 Neut # (Auto) 19.5 H Lymph # (Auto) 0.7 Isabela # (Auto) 1.2 Eos # (Auto) 0.1 Baso # (Auto) 0.0 Immature Gran # (Auto) 0.2 Neutrophils % (Manual) Lymphocytes % (Manual) Monocytes % (Manual) Anisocytosis Sodium 123.2 L Potassium 3.07 L Chloride 84.6 L Carbon Dioxide 30.3 H Anion Gap 11.37 BUN 5.4 L Creatinine 0.45 L Estimated GFR (MDRD) 168.00 BUN/Creatinine Ratio 12.00 Glucose 133.2 H Lactic Acid 3.83 H 1.19 D Calcium 8.59 Magnesium Total Bilirubin 0.72 AST 42.9 H ALT 41.3 H Alkaline Phosphatase 117.2 C-Reactive Prot, Quant 172 H Total Protein 8.20 Albumin 4.22 Globulin 3.98 Albumin/Globulin Ratio 1.06 Lipase 676.3 H Procalcitonin 1.65 H Urine Color Yellow Urine Clarity Clear Urine pH 7.5 Ur Specific [place] 1.015 Urine Protein 2+ H Urine Glucose (UA) Negative Urine Ketones Negative Urine Blood 2+ H Urine Nitrite Negative Urine Bilirubin Negative Urine Urobilinogen 0.2 Ur Leukocyte Esterase 1+ H Urine Microscopic RBC 0-2 Urine Microscopic WBC 5-10 Ur Squamous Epith Cells 0-2 Ur Renal Epithelial Cell 2-5 Urine Bacteria Trace 02/02/23 07:09 WBC 13.66 H D RBC 4.11 L Hgb 12.6 Hct 36.2 L MCV 88.1 MCH 30.7 MCHC 34.8 RDW Coeff of Jesus 13.2 Plt Count 318 Immature Gran % (Auto) Neut % (Auto) Lymph % (Auto) Isabela % (Auto) Eos % (Auto) Baso % (Auto) Neut # (Auto) Lymph # (Auto) Isabela # (Auto) Eos # (Auto) Baso # (Auto) Immature Gran # (Auto) Neutrophils % (Manual) 85.0 H Lymphocytes % (Manual) 5.0 L Monocytes % (Manual) 10.0 Anisocytosis Not present Sodium 127.5 L Potassium 2.54 L* Chloride 94.8 L Carbon Dioxide 30.7 H Anion Gap 4.54 BUN 2.7 L Creatinine 0.39 L Estimated GFR (MDRD) 198.00 BUN/Creatinine Ratio 6.92 Glucose 83.7 Lactic Acid 0.76 D Calcium 7.27 L Magnesium 1.30 L Total Bilirubin 1.07 AST 38.7 H ALT 17.2 Alkaline Phosphatase 117.2 C-Reactive Prot, Quant Total Protein 6.56 Albumin 3.24 L Globulin 3.32 Albumin/Globulin Ratio 0.97 Lipase Procalcitonin 0.96 H Urine Color Urine Clarity Urine pH Ur Specific [place] Urine Protein Urine Glucose (UA) Urine Ketones Urine Blood Urine Nitrite Urine Bilirubin Urine Urobilinogen Ur Leukocyte Esterase Urine Microscopic RBC Urine Microscopic WBC Ur Squamous Epith Cells Ur Renal Epithelial Cell Urine Bacteria Orders Category Date Time Status PLACE PATIENT OBSERVATION .TO MEDSURG (MONITORED BED ADMISSION 02/02/23 09:51 Active ) BLOOD GLUCOSE MONITORING (MED/SURG) ACCUCHECK Q6H CARE 02/02/23 09:51 Active INTAKE & OUTPUT Q8HR CARE 02/02/23 09:50 Active NPO REMINDER: IMAGING ONCE CARE 02/01/23 16:57 Completed NPO REMINDER: IMAGING ONCE CARE 02/02/23 00:14 Completed TELEMETRY MONITORING TELE CARE 02/02/23 09:52 Active VITAL SIGNS Q4HR CARE 02/02/23 09:50 Active NOTHING BY MOUTH DIETARY 02/02/23 Lunch Ordered ED IV/MEDIPORT/POWERPORT .ONCE EMERGENCY 02/01/23 16:29 Active BLOOD CULTURE (ED ONLY) Stat LAB 02/01/23 18:10 Results C-REACTIVE PROTEIN Stat LAB 02/01/23 16:45 Completed CBC W/ AUTO DIFF DAILY@0600 LAB 02/03/23 04:50 Completed CBC W/ AUTO DIFF DAILY@0600 LAB 02/04/23 06:00 Ordered CBC W/ AUTO DIFF Stat LAB 02/01/23 16:45 Completed CBC W/ AUTO DIFF Timed LAB 02/02/23 07:09 Completed CMP [COMPREHENSIVE METABOLIC PANEL] Stat LAB 02/01/23 16:45 Completed CMP [COMPREHENSIVE METABOLIC PANEL] Stat LAB 02/02/23 07:09 Completed COMPREHENSIVE METABOLIC PANEL DAILY@0600 LAB 02/03/23 04:50 Completed COMPREHENSIVE METABOLIC PANEL DAILY@0600 LAB 02/04/23 06:00 Ordered LACTIC ACID Stat LAB 02/01/23 16:45 Completed LACTIC ACID Stat LAB 02/01/23 22:00 Completed LACTIC ACID Stat LAB 02/02/23 07:09 Completed LIPASE Stat LAB 02/01/23 16:45 Completed MAGNESIUM Stat LAB 02/02/23 07:09 Completed MANUAL DIFFERENTIAL Timed LAB 02/02/23 07:09 Completed PROCALCITONIN Stat LAB 02/01/23 16:45 Completed PROCALCITONIN Stat LAB 02/02/23 07:09 Completed UA [URINALYSIS C & S IF INDICATED] Stat LAB 02/01/23 16:40 Completed URINE CULTURE Stat LAB 02/01/23 16:59 Completed 0.9 % Sodium Chloride [Saline Flush] Meds 02/01/23 16:29 Active 1 syr IVF PRN PRN Acetaminophen [Tylenol] Meds 02/02/23 09:51 Active 650 mg PO Q4H PRN Enoxaparin Sodium [Lovenox] Meds 02/02/23 10:00 Active 30 mg SUBCUT DAILY Fentanyl Citrate/Pf [Sublimaze] Meds 02/01/23 18:26 Discontinued 50 mcg IVP ONCE ONE Magnesium Sulfate Vial [Magnesium Sulfate 1 gm/2 ml Meds 02/02/23 07:47 Discontinued Vial] 6 gm 0.9 % Sodium Chloride [Sodium Chloride 100Ml] 100 ml IV ONCE Magnesium Sulfate in Water [Magnesium Sulf 2 G/50 ml Meds 02/02/23 07:54 Discontinued Bag] 2 gm in 50 ml IV ONCE Metoclopramide HCl [Reglan] Meds 02/02/23 09:54 Active 10 mg IVP Q6H PRN Morphine Sulfate [Morphine 10 mg/ml Syringe] Meds 02/01/23 21:30 Discontinued 8 mg IVP ONCE STA Morphine Sulfate [Morphine 10 mg/ml Syringe] Meds 02/02/23 03:39 Discontinued 8 mg IVP ONCE STA Nicotine 21 mg [Nicoderm 21 mg] Meds 02/01/23 17:46 Discontinued 1 patch TD ONCE ONE Nicotine 21 mg [Nicoderm 21 mg] Meds 02/02/23 09:37 Discontinued 1 patch TD ONCE ONE Nictotine Patch Meds 02/02/23 09:33 Discontinued 21 mg TD ONCE ONE Ondansetron HCl/Pf [Zofran 4 mg/2 ml] Meds 02/01/23 16:35 Discontinued 4 mg IVP ONCE ONE Ondansetron HCl/Pf [Zofran 4 mg/2 ml] Meds 02/01/23 21:30 Discontinued 4 mg IVP ONCE ONE Ondansetron HCl/Pf [Zofran 4 mg/2 ml] Meds 02/02/23 02:37 Discontinued 4 mg IVP ONCE ONE Ondansetron HCl/Pf [Zofran 4 mg/2 ml] Meds 02/02/23 09:54 Active 4 mg IVP Q6H PRN Piperacillin Sodium/Tazobactam [Zosyn 3.375 gm] 3.375 Meds 02/01/23 18:31 Discontinued gm 0.9 % Sodium Chloride [Sodium Chloride 100Ml] 100 ml IV ONCE Piperacillin Sodium/Tazobactam [Zosyn 3.375 gm] 3.375 Meds 02/02/23 12:00 Active gm 0.9 % Sodium Chloride [Sodium Chloride 100Ml] 100 ml IV Q6HR Potassium Chloride [Potassium Chloride 20 Meq/100 ml Meds 02/02/23 07:47 Discontinued Premix] 20 meq in 100 ml IV ONCE Sodium Chloride 0.9% [Sodium Chloride] 1,000 ml Meds 02/02/23 10:00 Discontinued IV 100 mls/hr Sodium Chloride 0.9% [Sodium Chloride] 1,000 ml Meds 02/01/23 21:32 Discontinued IV 150 mls/hr Sodium Chloride 0.9% [Sodium Chloride] 1,000 ml Meds 02/02/23 03:54 Discontinued IV 150 mls/hr Sodium Chloride 0.9% [Sodium Chloride] 1,000 ml Meds 02/01/23 16:35 Discontinued IV BOLUS Sodium Chloride 0.9% [Sodium Chloride] 1,000 ml Meds 02/01/23 17:[address] ABDOMEN/PELVIS W CONTRAST Stat RADS 02/01/23 16:57 Completed US ABDOMEN RT UPPER QUAD [U/S ABDOMEN RT UPPER QUAD] RADS 02/02/23 00:14 Completed Stat Medications Generic Name Dose Route Start Last Admin Trade Name Freq PRN Reason Stop Dose Admin Acetaminophen 650 mg 02/02/23 09:51 Acetaminophen 325 Mg Tablet PO Q4H PRN Mild Pain Enoxaparin Sodium 30 mg 02/02/23 10:00 02/02/23 12:29 Enoxaparin Sodium 30 Mg/0.3 Ml Syr SUBCUT 30 mg DAILY ELIAN Administration Piperacillin Sod/Tazobactam 100 mls @ 100 mls/hr 02/02/23 12:00 02/03/23 05:33 Sod 3.375 gm/ Sodium Chloride IV 02/05/23 11:59 100 mls/hr Q6HR ELIAN Administration Potassium Chloride/Dextrose/Sod Cl 1,000 mls @ 100 mls/hr 02/03/23 07:30 D5%-Ns-Kcl 40 Meq/L Iv Gwendolyn IV .Q10H ELIAN Losartan Potassium 100 mg 02/02/23 13:30 02/02/23 15:20 Losartan Potassium 100 Mg Tablet PO 100 mg DAILY ELIAN Administration Metoclopramide HCl 10 mg 02/02/23 09:54 Metoclopramide Hcl 10 Mg/2 Ml IVP Q6H PRN Nausea / Vomiting Morphine Sulfate 2 mg 02/02/23 12:53 02/03/23 07:29 Morphine Sulfate 2 Mg/Ml Syringe IVP 2 mg Q4H PRN Administration MODERATE PAIN Nicotine 1 patch 02/02/23 15:00 02/02/23 15:20 Nicotine 21 Mg Patch.Td24 TD 1 patch DAILY ELIAN Administration Ondansetron HCl 4 mg 02/02/23 09:54 Ondansetron Hcl/Pf 4 Mg/2 Ml Sdv IVP Q6H PRN Nausea / Vomiting Sodium Chloride 1 syr 02/01/23 16:29 02/02/23 02:43 0.9% Sodium Chloride 10 Ml Disp.Syrin IVF 1 syr PRN PRN Administration To flush IV Discontinued Medications Generic Name Dose Route Start Last Admin Trade Name Freq PRN Reason Stop Dose Admin Dextrose 50 ml 02/02/23 22:19 02/02/23 22:49 Dextrose 50 % In Water 50 Ml Disp.Syrin IVP 02/02/23 22:20 50 ml ONCE STA Administration Fentanyl Citrate 50 mcg 02/01/23 18:26 02/01/23 18:39 Fentanyl 50 Mcg/Ml Sdv IVP 02/01/23 18:27 50 mcg ONCE ONE Administration Sodium Chloride 1,000 mls @ 1,000 mls/hr 02/01/23 16:35 02/01/23 16:55 Sodium Chloride IV 02/01/23 17:34 1,000 mls/hr BOLUS STA Administration Sodium Chloride 1,000 mls @ 1,000 mls/hr 02/01/23 17:53 02/01/23 18:20 Sodium Chloride IV 02/01/23 18:52 1,000 mls/hr BOLUS STA Administration Piperacillin Sod/Tazobactam 100 mls @ 100 mls/hr 02/01/23 18:31 02/01/23 18:43 Sod 3.375 gm/ Sodium Chloride IV 02/01/23 19:30 100 mls/hr ONCE ONE Administration Sodium Chloride 1,000 mls @ 150 mls/hr 02/01/23 21:32 02/01/23 21:41 Sodium Chloride IV 02/02/23 04:11 150 mls/hr .Q6H40M STA Administration Sodium Chloride 1,000 mls @ 150 mls/hr 02/02/23 03:54 02/02/23 03:54 Sodium Chloride IV 02/02/23 10:33 150 mls/hr .Q6H40M ONE Administration Magnesium Sulfate 6 gm/ Sodium 112 mls @ 400 mls/hr 02/02/23 07:47 02/02/23 09:31 Chloride IV 02/02/23 08:03 Not Given ONCE ONE Potassium Chloride 20 meq in 100 mls @ 50 mls/hr 02/02/23 07:47 02/02/23 08:00 Potassium Chloride 20 Meq/100 Ml Premix IV 02/02/23 09:46 50 mls/hr ONCE ONE Administration MAGNESIUM SULFATE IN WATER 2 gm in 50 mls @ 25 mls/hr 02/02/23 07:54 02/02/23 08:21 Magnesium Sulf 2 G/50 Ml Bag IV 02/02/23 09:53 25 mls/hr ONCE ONE Administration Sodium Chloride 1,000 mls @ 100 mls/hr 02/02/23 10:00 02/02/23 13:59 Sodium Chloride IV Not Given .Q10H ELIAN Sodium Chloride 1,000 mls @ 200 mls/hr 02/02/23 12:27 02/02/23 18:14 Sodium Chloride IV 200 mls/hr .Q5H ELIAN Administration Potassium Chloride 40 meq in 200 mls @ 50 mls/hr 02/02/23 15:05 02/02/23 15:52 Potassium Chloride 20 Meq/100 Ml Premix IV 02/02/23 19:04 50 mls/hr ONCE ONE Administration Sodium Chloride 1,000 mls @ 100 mls/hr 02/02/23 18:18 02/02/23 20:01 Sodium Chloride IV Not Given .Q10H ELIAN Dextrose/Sodium Chloride 1,000 mls @ 100 mls/hr 02/02/23 22:30 02/02/23 22:50 Dextrose 5%-Ns Iv Solution IV 100 mls/hr .Q10H ELIAN Administration Potassium Chloride 20 meq in 100 mls @ 50 mls/hr 02/03/23 05:38 02/03/23 06:07 Potassium Chloride 20 Meq/100 Ml Premix IV 02/03/23 07:37 50 mls/hr ONCE ONE Administration Losartan Potassium 0 mg 02/02/23 13:00 02/02/23 13:59 Losartan Potassium 100 Mg Tablet PO Not Given DAILY ELIAN Morphine Sulfate 8 mg 02/01/23 21:30 02/01/23 21:46 Morphine Sulfate 10 Mg/Ml Syringe IVP 02/01/23 21:31 8 mg ONCE STA Administration Morphine Sulfate 8 mg 02/02/23 03:39 02/02/23 03:50 Morphine Sulfate 10 Mg/Ml Syringe IVP 02/02/23 03:40 8 mg ONCE STA Administration Nicotine 1 patch 02/01/23 17:46 02/01/23 17:55 Nicotine 21 Mg Patch.Td24 TD 02/01/23 17:47 1 patch ONCE ONE Administration Nicotine 1 patch 02/02/23 09:37 02/02/23 09:39 Nicotine 21 Mg Patch.Td24 TD 02/02/23 09:38 1 patch ONCE ONE Administration Non-Formulary Medication 21 mg 02/02/23 09:33 02/02/23 15:50 Nictotine Patch TD 02/02/23 09:34 Not Given ONCE ONE Ondansetron HCl 4 mg 02/01/23 16:35 02/01/23 16:56 Ondansetron Hcl/Pf 4 Mg/2 Ml Sdv IVP 02/01/23 16:36 4 mg ONCE ONE Administration Ondansetron HCl 4 mg 02/01/23 21:30 02/01/23 21:45 Ondansetron Hcl/Pf 4 Mg/2 Ml Sdv IVP 02/01/23 21:31 4 mg ONCE ONE Administration Ondansetron HCl 4 mg 02/02/23 02:37 02/02/23 02:43 Ondansetron Hcl/Pf 4 Mg/2 Ml Sdv IVP 02/02/23 02:38 4 mg ONCE ONE Administration Potassium Chloride 40 meq 02/02/23 15:06 02/02/23 16:43 Potassium Chloride 20 Meq Tab PO 02/02/23 15:07 Not Given ONCE ONE Vital Signs: Temp Pulse Resp BP Pulse Ox 02/02/23 06:00 101 H 16 161/96 H 96 02/02/23 04:05 104 H 16 157/96 H 97 02/02/23 02:02 100 22 H 167/92 H 98 02/01/23 19:17 98.8 F 103 H 17 164/101 H 96 02/01/23 16:29 98.9 F 127 H 20 148/95 H 96 Assumed care of patient at 0700 on shift change after check-out by Dr Kilpatrick. Patient is awaiting US, which will determine her disposition. If the aleisha art is found to be diseased, which is the expected outcome, she will need transfer to a General Surgeon. If it is normal, we can admit here for IVF/pain control awaiting transfer to [facility] when a bed becomes available. She has significant leukocytosis (21.75) with a left shift (segs 89.6%, absolute 19.5), hyponatremia (Na/Cl 123.2/84.6), and hypokalemia (3.07). She has been given IVNS and IV Zosyn. I ordered a Magnesium, after results I will address any deficit noted as well as provide supplemental Potassium. The UA is consistent with UTI (UBlood 2+, LE 1+, UWBC 5-10, URBC 0-2, UBacteria trace). I would expect the IV Zosyn to adequately address this issue. The CT Abdomen/Pelvis with IV contrast reported "The gallbladder is mildly distended and elongated. The pancreas has several coarse parenchymal calcifications at the level of the head suggesting evidence of chronic pancreatitis. Suggestion of calculi largest 5 mm within the distal main pancreatic duct (coronal image 37) and the pancreatic duct is dilated (6.5 mm). No evidence of acute pancreatitis. Moderately severe atherosclerotic disease. No bowel obstruction. No ascites or free air". When posted, the Magnesium was low (1.3), so it was replaced via premix IV, Additionally, a Potassium rider was ordered. The LA went from 3.83 at 1645 to 1.19 at 2200. The PCT was 1.65 at 1645, with a Lipase of 676.3. The US posted, reporting " Discharge Plan Discharge Patient Disposition: PLACED OBSERVATION Discharge Problem: Severe sepsis, Abdominal pain, Acute hypokalemia, Pancreatitis, Biliary colic Did you review [place] SURVEY CHIEF for ALL controlled substances?: Not Applicable ED Provider: CURTIS QUINTEROS <SARAH KILPATRICK MD - Last Filed: 02/02/23 06:27> Physician Progress Note: []
[2023-02-01 16:51] LABS: BASOPHILS % (AUTO) 0.2 % (0.0-3.0); EOSINOPHILS # (AUTO) 0.1 K/ul (0.0-0.7); EOSINOPHILS % (AUTO) 0.5 % (0.0-7.0); HEMATOCRIT 41.6 % (37.0-47.0); HEMOGLOBIN 14.7 g/dl (12.0-16.0); IMMATURE GRANULOCYTE # (AUTO) 0.2 (0.0-1.0); LYMPHOCYTES # (AUTO) 0.7 K/uL (0.60-3.4); LYMPHOCYTES % (AUTO) 3.2 (10.0-50.0); MEAN CORPUSCULAR HEMOGLOBIN 30.9 pg (27.0-31.0); MEAN CORPUSCULAR HGB CONC 35.3 (31.8-35.4); MEAN CORPUSCULAR VOLUME 87.6 fl (81.0-99.0); MONOCYTES # (AUTO) 1.2 K/uL (0.4-2.0); MONOCYTES % (AUTO) 5.5 (0-10); NEUTROPHILS # (AUTO) 19.5 K/ul (2.0-6.9); NEUTROPHILS % (AUTO) 89.6 % (42.2-75.2); PLATELET COUNT 377 10^3/uL (140-440); RDW COEFFICIENT OF VARIATION 13.1 % (11.6-14.8); RED BLOOD COUNT 4.75 10^6/ul (4.20-5.40); WHITE BLOOD COUNT 21.75 K/ul (4.6-10.2)
[2023-02-01 16:53] LABS: BILIRUBIN,URINE Negative (NEGATIVE); CLARITY,URINE Clear (CLEAR); COLOR,URINE Yellow (YELLOW); GLUCOSE, URINE (UA) Negative (NEGATIVE); KETONES,URINE Negative (NEGATIVE); LEUKOCYTE ESTERASE ,URINE 1+ (NEGATIVE); NITRITE,URINE Negative (NEGATIVE); PH,URINE 7.5 (5-9); PROTEIN,URINE 2+ (NEGATIVE); URINE, BLOOD 2+ (NEGATIVE); UROBILINOGEN,URINE 0.2 (0.2)
[2023-02-01 16:59] LABS: BACTERIA,URINE TRACE (NOT PRESENT); SQUAMOUS EPITHELIAL CELL,UR 0-2 (0-5); URINE RBC, MICROSCOPIC 0-2 (0-2)
[2023-02-01 17:05] LABS: ALBUMIN 4.22 g/dL (3.5-5.0); ALKALINE PHOSPHATASE 117.2 U/L (53-141); ASPARTATE AMINO TRANSFERASE 42.9 U/L (14-36); BILIRUBIN,TOTAL 0.72 mg/dL (0.2-1.3); BLOOD UREA NITROGEN 5.4 mg/dL (7-17); CALCIUM 8.59 mg/dL (8.4-10.2); CARBON DIOXIDE 30.3 mmol/L (22-30.0); CHLORIDE 84.6 mmol/L (98-107); CREATININE 0.45 mg/dL (0.60-1.30); GLUCOSE 133.2 mg/dL (74-106); LIPASE 676.3 U/L (23-300); POTASSIUM 3.07 mmol/L (3.5-5.1); SODIUM 123.2 mmol/L (134.5-145); TOTAL PROTEIN 8.2 g/dL (6.3-8.2)
[2023-02-01 17:11] LABS: ALANINE AMINOTRANSFERASE 41.3 U/L (0-35)
[2023-02-01] MEDS ORDERED: NICODERM 21 MG TD ONE (17:46)
--- NOTE | 2023-02-01 17:53 | CT ---
EXAM: CT ABDOMEN AND PELVIS HISTORY: Abdominal pain, elevated WBC TECHNIQUE: CT abdomen and pelvis with intravenous contrast. Images were reconstructed using 5 mm se ction thickness. Reformations were prepared. COMPARISON: None FINDINGS: Elongated right hepatic lobe. The gallbladder is mildly distended and elongated. The castillo creas has several coarse parenchymal calcifications at the level of the head suggesting evidence of c hronic pancreatitis. Suggestion of calculi largest 5 mm within the distal main pancreatic duct (dulce maria nal image 37) and the pancreatic duct is dilated (6.5 mm). No evidence of acute pancreatitis. Sple en is within normal limits. Adrenal glands are unremarkable. Normal enhancement of the kidneys with out hydronephrosis. Moderately severe atherosclerotic disease. The stomach is elongated and mildly distended, nonspecific. No bowel obstruction. No uterus is seen. Urinary bladder is within normal limits. No ascites or free air. No abdominal wall hernia. The bones and appear appropriate for age . Lung bases reveal chronic interstitial changes and mild atelectasis. IMPRESSION: 1. The gallbladder is mildly distended and elongated. 2. The pancreas has several coarse parenchymal calcifications at the level of the head suggesting ev idence of chronic pancreatitis. Suggestion of calculi largest 5 mm within the distal main pancreatic duct (coronal image 37) and the pancreatic duct is dilated (6.5 mm). No evidence of acute pancreat itis. 3. Moderately severe atherosclerotic disease. 4. No bowel obstruction. No ascites or free air. - - - - - All CT scans are performed using dose optimization techniques as appropriate to the performed exam an d include at least one of the following: Automated exposure control, adjustment of the mA and/or kV according t o size, and the use of iterative reconstruction technique.
[2023-02-01] MEDS ORDERED: SUBLIMAZE IVP ONE (18:26)
[2023-02-01] MEDS ORDERED: ZOSYN 3.375 GM 3.375 GM in SODIUM CHLORIDE 100ML 100 ML IV ONE (18:31)
[2023-02-01] MEDS ORDERED: MORPHINE 10 MG/ML SYRINGE IVP STA (21:30)
[2023-02-01] MEDS: ZOFRAN 4 MG/2 ML IVP ONE (21:45)
[2023-02-02] MEDS ORDERED: ZOFRAN 4 MG/2 ML IVP ONE (02:37)
[2023-02-02] MEDS ORDERED: MORPHINE 10 MG/ML SYRINGE IVP STA (03:39)
[2023-02-02] MEDS ORDERED: SODIUM CHLORIDE 1,000 ML IV ONE (03:54)
[2023-02-02 07:14] LABS: HEMATOCRIT 36.2 % (37.0-47.0); HEMOGLOBIN 12.6 g/dl (12.0-16.0); MEAN CORPUSCULAR HEMOGLOBIN 30.7 pg (27.0-31.0); MEAN CORPUSCULAR HGB CONC 34.8 (31.8-35.4); MEAN CORPUSCULAR VOLUME 88.1 fl (81.0-99.0); PLATELET COUNT 318 10^3/uL (140-440); RDW COEFFICIENT OF VARIATION 13.2 % (11.6-14.8); RED BLOOD COUNT 4.11 10^6/ul (4.20-5.40); WHITE BLOOD COUNT 13.66 K/ul (4.6-10.2)
[2023-02-02 07:34] LABS: ALANINE AMINOTRANSFERASE 17.2 U/L (0-35); ALBUMIN 3.24 g/dL (3.5-5.0); ALKALINE PHOSPHATASE 117.2 U/L (53-141); ASPARTATE AMINO TRANSFERASE 38.7 U/L (14-36); BILIRUBIN,TOTAL 1.07 mg/dL (0.2-1.3); BLOOD UREA NITROGEN 2.7 mg/dL (7-17); CALCIUM 7.27 mg/dL (8.4-10.2); CARBON DIOXIDE 30.7 mmol/L (22-30.0); CHLORIDE 94.8 mmol/L (98-107); CREATININE 0.39 mg/dL (0.60-1.30); GLUCOSE 83.7 mg/dL (74-106); SODIUM 127.5 mmol/L (134.5-145); TOTAL PROTEIN 6.56 g/dL (6.3-8.2)
[2023-02-02 07:44] LABS: POTASSIUM 2.54 mmol/L (3.5-5.1)
[2023-02-02] MEDS ORDERED: MAGNESIUM SULFATE IV ONE (07:47)
[2023-02-02] MEDS ORDERED: POTASSIUM CHLORIDE 20 MEQ/100 ML PREMIX 20 MEQ/100 ML BAG IV ONE (07:47)
[2023-02-02] MEDS ORDERED: SODIUM CHLORIDE IV ONE (07:47)
[2023-02-02] MEDS ORDERED: MAGNESIUM SULF 2 G/50 ML BAG 2 GM/50 ML PIGGYBACK IV ONE (07:54)
[2023-02-02 07:57] LABS: ANISOCYTOSIS NOT PRESENT (NOT PRESENT)
--- NOTE | 2023-02-02 08:48 | US ---
EXAM: ABDOMINAL ULTRASOUND LIMITED HISTORY: Right upper quadrant pain. COMPARISON: CT abdomen pelvis 02/01/2023 TECHNIQUE: Sonographic and limited Doppler evaluation of the right upper quadrant was performed. FINDINGS: The liver is normal in echogenicity and measures 15.4 cm. The portal vein is patent. The gallbladder demonstrates layering sludge with no pericholecystic fluid. There is mild gallbladder f undal increased echogenicity with questionable ring down artifact. The gallbladder wall measures 4 m m. Common bile duct is unremarkable and measures 1.0 cm in diameter. The pancreas is unremarkable i n appearance. IMPRESSION: 1. Gallbladder demonstrates questionable fundal adenomyomatosis. There is no pericholecystic fluid or evidence of acute cholecystitis. 2. Minimal layering sludge. 3. Prominent common duct.
[2023-02-02] MEDS ORDERED: NICOTINE 21 MG TD ONE (09:33)
[2023-02-02] MEDS ORDERED: NICODERM 21 MG TD ONE (09:37)
[2023-02-02] MEDS ORDERED: REGLAN IVP PRN (09:54)
[2023-02-02] MEDS ORDERED: ZOFRAN 4 MG/2 ML IVP PRN (09:54)
[2023-02-02] MEDS ORDERED: SODIUM CHLORIDE 1,000 ML IV SCH ×2 (10:00→18:18)
[2023-02-02 10:31] VITALS: BMI 16.6
[2023-02-02] MEDS: ZOSYN 3.375 GM 3.375 GM in SODIUM CHLORIDE 100ML 100 ML IV SCH ×3 (12:29→23:32)
[2023-02-02] MEDS: LOVENOX SUBCUT SCH (12:29)
[2023-02-02] MEDS: SODIUM CHLORIDE 1,000 ML IV SCH ×2 (12:31→18:14)
--- NOTE | 2023-02-02 12:47 | MRI ---
EXAM: MRI ABDOMEN WITHOUT AND WITH CONTRAST HISTORY: Abdominal pain, dilated common bile duct COMPARISON: CT abdomen from 02/01/2023 and abdominal sonogram from 02/02/2023 TECHNIQUE: Multiplanar multisequence MRI is performed utilizing a 1.5 Shelby magnet without and follo wing the administration of intravenous gadolinium. MRCP is performed with 3D volume rendered images. CONTRAST: 8.0 mL Clariscan IV FINDINGS: No pericardial or pleural effusions. There is evidence of fat or iron deposition in the liver. No hepatic masses. The portal and hepatic veins are patent. The gallbladder is distended. There is mild intrahepatic biliary dilatation. No cholelithiasis or choledocholithiasis. The common bile duct is dilated to 0.7 cm. The pancreatic d uct is dilated up to 0.6 cm. There are multiple intraductal calculi in the pancreatic duct at the he ad of the pancreas. The pancreas has decreased T1 signal and diminish enhancement. 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 No suspicious pancreatic masses. The spleen has normal size and signal. The adrenal glands have normal signal and morphology. Simple acquired renal cysts are noted. No suspicious renal masses or hydronephrosis. The abdominal aorta has normal caliber and flow signal. No lymphadenopathy. There is suggestion of a small volume of pericholecystic fluid. The visible intestines have normal signal and caliber without evidence of obstruction or acute inflam mation. The abdominal aorta has normal caliber and flow signal. No lymphadenopathy or ascites. No suspicious marrow signal. IMPRESSION: 1. Mild intrahepatic dilatation and common bile duct dilatation to 0.7 cm. No choledocholithiasis. Small volume of pericholecystic ascites. Possible stricture of the distal duct near the ampulla. Re commend correlation with ERCP. 2. Chronic pancreatitis. 3. Pancreatic duct dilatation and pancreatic duct calculi. Intraductal papillary mucinous mucinous n eoplasm not excluded. 4. Simple acquired renal cysts. .
[2023-02-02] MEDS ORDERED: COZAAR PO SCH (13:00)
--- NOTE | 2023-02-02 14:37 | PCM ---
Date of Service Date Seen by Provider: 02/02/23 Admit Day/Time Admission Date: 02/02/23 Reason for Admission Chief Complaint: CHOLECYSTITIS Hospital Provider Hospital [place] [facility] [place] Primary Care Physician: MAC MCADAMS APRN, FNP-C History of Present Illness History of Present Illness: 67-year-old female presented to the ER with complaints abdominal pain, nausea, vomiting, and concerns for dehydration. Patient states she has not been feeling well since around . Has had no appetite and has been unable to tolerate any liquids. Has complaints of right upper quadrant abdominal pain that she describes as a sharp stabbing pain. Nonradiating pain. No aggravating or relieving factors. Denies any fever that she is aware of. Denies any chest pain or shortness of breath. CT scan completed in the ER showed the gallbladder to be distended and dilated. Ultrasound was not in-house at the time. Patient was held in the ER overnight due to inability to transfer to another facility due to lack of beds available. Patient was accepted to [facility] awaiting a bed to open up. Ultrasound showed common bile duct dilation of 1 cm. Case Discussed With Case Discussed With: Patient's case was discussed with the ER Physicians, Dr. Kilpatrick with Beverly Maynard PA-C and Dr. Conteh this am to this provider. [facility] Medical History (Updated 02/02/23 @ 14:25 by JESSA AVILEZ) Anemia D64.9 - Anemia, unspecified (ICD-10) Breast CA C50.919 - Malignant neoplasm of unspecified site of unspecified female breast (ICD-10) Dyslipidemia (01/01/17) E78.5 - Hyperlipidemia, unspecified (ICD-10) Essential hypertension (12/10/15) I10 - Essential (primary) hypertension (ICD-10) GERD (gastroesophageal reflux disease) (05/14/17) K21.9 - Gastro-esophageal reflux disease without esophagitis (ICD-10) Hyponatremia (08/09/15) E87.1 - Hypo-osmolality and hyponatremia (ICD-10) Osteoporosis (09/26/15) M81.0 - Age-related osteoporosis without current pathological fracture (ICD- 10) Pancreatitis K85.90 - Acute pancreatitis without necrosis or infection, unspecified (ICD- 10) Vitamin B 12 deficiency E53.8 - Deficiency of other specified B group vitamins (ICD-10) Surgical History H/O cataract extraction Z98.49 - Cataract extraction status, unspecified eye (ICD-10) History of breast biopsy Z98.890 - Other specified postprocedural states (ICD-10) Status post hysterectomy Z90.710 - Acquired absence of both cervix and uterus (ICD-10) Family History Mother Diabetes Heart attack FATHER Diabetes Heart attack Social History Smoking and tobacco status: Current every day smoker Tobacco type: cigarettes Smoking packs per day: 1 Tobacco: How many years used: 9 Quit status: not considering quitting Smoking risk assessment performed: Yes Alcohol intake: current Alcohol intake frequency: 3 or more drinks per day Alcohol type: beer Counseling given: No Substance use type: does not use Counseling given: No Ashley/buddhism: SABIANIST Special ashley needs: No Agree to transfusion: Yes Household members: none Marital status: W / Lives independently: Yes Number of children: 1 Number of grandchildren: 4 Highest education level completed: some college, no degree service: No Current occupational status: retired and disabled Current occupational exposures/hazards: No Pets and animals: Yes (one cat and one dog) History of recent travel: No Sexually active: No Do you think of yourself as: straight/heterosexual Current gender identity: female Seatbelt use: always Water heater temperature set < 120 degrees: Yes Working smoke detector in home: Yes Fire extinguisher in home: Yes Carbon monoxide detector in home: Yes Firearms in home: No Allergies Allergies Allergy/AdvReac Type Severity Reaction Status Date / Time ibuprofen Allergy Nausea Verified 02/02/23 10:20 Current Medications Home Medications aspirin 81 mg tablet,delayed release (Aspir-) 81 mg PO DAILY #30 tab-caps 12/27/18 [Rx Confirmed 02/01/23 Last Taken Unknown] albuterol sulfate 90 mcg/actuation aerosol inhaler (ProAir HFA) 2 puff inhalation Q4-6H PRN shortness of breath or wheezing #8.5 grams 05/27/21 [Rx Confirmed 02/01/23 Last Taken Unknown] hydrocodone 7.5 mg-acetaminophen 325 mg tablet 1 tab PO BID PRN pain 12/31/21 [History Confirmed 02/01/23 Last Taken Unknown] alendronate 70 mg tablet See Rx Instructions .Route .COMPLEX #12 tabs 12/08/22 [Rx Confirmed 02/01/23 Last Taken Unknown] losartan 100 mg tablet See Rx Instructions .Route .COMPLEX #90 tabs 12/08/22 [Rx Confirmed 02/01/23 Last Taken Unknown] albuterol sulfate 90 mcg/actuation aerosol inhaler 2 puff inhalation Q4-6H PRN shortness of breath or wheezing #16 grams 01/19/23 [Rx Confirmed 02/01/23 Last Taken Unknown] atorvastatin 40 mg tablet See Rx Instructions .Route .COMPLEX #90 tabs 01/22/23 [Rx Confirmed 02/01/23 Last Taken Unknown] omeprazole 20 mg capsule,delayed release See Rx Instructions .Route .COMPLEX #90 caps 01/30/23 [Rx Confirmed 02/01/23 Last Taken Unknown] Home Acetaminophen (Acetaminophen 325 Mg Tablet) 650 mg PO Q4H PRN PRN Reason: Mild Pain Enoxaparin Sodium (Enoxaparin Sodium 30 Mg/0.3 Ml Syr) 30 mg SUBCUT DAILY ON LICENSE OF [facility] Last Admin: 02/02/23 12:29 Dose: 30 mg Piperacillin Sod/Tazobactam (Sod 3.375 gm/ Sodium Chloride) 100 mls @ 100 mls/hr IV Q6HR ON LICENSE OF [facility] Stop: 02/05/23 11:59 Last Admin: 02/02/23 12:29 Dose: 100 mls/hr Sodium Chloride (Sodium Chloride) 1,000 mls @ 200 mls/hr IV .Q5H ON LICENSE OF [facility] Last Admin: 02/02/23 12:31 Dose: 200 mls/hr Potassium Chloride (Potassium Chloride 20 Meq/100 Ml Premix) 40 meq in 200 mls @ 50 mls/hr IV ONCE ONE Stop: 02/02/23 19:04 Losartan Potassium (Losartan Potassium 100 Mg Tablet) 100 mg PO DAILY ON LICENSE OF [facility] Metoclopramide HCl (Metoclopramide Hcl 10 Mg/2 Ml) 10 mg IVP Q6H PRN PRN Reason: Nausea / Vomiting Morphine Sulfate (Morphine Sulfate 2 Mg/Ml Syringe) 2 mg IVP Q4H PRN PRN Reason: MODERATE PAIN Nicotine (Nicotine 21 Mg Patch.Td24) 1 patch TD DAILY ELIAN Ondansetron HCl (Ondansetron Hcl/Pf 4 Mg/2 Ml Sdv) 4 mg IVP Q6H PRN PRN Reason: Nausea / Vomiting Potassium Chloride (Potassium Chloride 20 Meq Tab) 40 meq PO ONCE ONE Stop: 02/02/23 15:07 Sodium Chloride (0.9% Sodium Chloride 10 Ml Disp.Syrin) 1 syr IVF PRN PRN PRN Reason: To flush IV Last Admin: 02/02/23 02:43 Dose: 1 syr Discontinued Medications Fentanyl Citrate (Fentanyl 50 Mcg/Ml Sdv) 50 mcg IVP ONCE ONE Stop: 02/01/23 18:27 Last Admin: 02/01/23 18:39 Dose: 50 mcg Sodium Chloride (Sodium Chloride) 1,000 mls @ 1,000 mls/hr IV BOLUS STA Stop: 02/01/23 17:34 Last Admin: 02/01/23 16:55 Dose: 1,000 mls/hr Sodium Chloride (Sodium Chloride) 1,000 mls @ 1,000 mls/hr IV BOLUS STA Stop: 02/01/23 18:52 Last Admin: 02/01/23 18:20 Dose: 1,000 mls/hr Piperacillin Sod/Tazobactam (Sod 3.375 gm/ Sodium Chloride) 100 mls @ 100 mls/hr IV ONCE ONE Stop: 02/01/23 19:30 Last Admin: 02/01/23 18:43 Dose: 100 mls/hr Sodium Chloride (Sodium Chloride) 1,000 mls @ 150 mls/hr IV .Q6H40M STA Stop: 02/02/23 04:11 Last Admin: 02/01/23 21:41 Dose: 150 mls/hr Sodium Chloride (Sodium Chloride) 1,000 mls @ 150 mls/hr IV .Q6H40M ONE Stop: 02/02/23 10:33 Last Admin: 02/02/23 03:54 Dose: 150 mls/hr Magnesium Sulfate 6 gm/ Sodium (Chloride) 112 mls @ 400 mls/hr IV ONCE ONE Stop: 02/02/23 08:03 Last Admin: 02/02/23 09:31 Dose: Not Given Potassium Chloride (Potassium Chloride 20 Meq/100 Ml Premix) 20 meq in 100 mls @ 50 mls/hr IV ONCE ONE Stop: 02/02/23 09:46 Last Admin: 02/02/23 08:00 Dose: 50 mls/hr MAGNESIUM SULFATE IN WATER (Magnesium Sulf 2 G/50 Ml Bag) 2 gm in 50 mls @ 25 mls/hr IV ONCE ONE Stop: 02/02/23 09:53 Last Admin: 02/02/23 08:21 Dose: 25 mls/hr Sodium Chloride (Sodium Chloride) 1,000 mls @ 100 mls/hr IV .Q10H ELIAN Last Admin: 02/02/23 13:59 Dose: Not Given Losartan Potassium (Losartan Potassium 100 Mg Tablet) 0 mg PO DAILY ELIAN Last Admin: 02/02/23 13:59 Dose: Not Given Morphine Sulfate (Morphine Sulfate 10 Mg/Ml Syringe) 8 mg IVP ONCE STA Stop: 02/01/23 21:31 Last Admin: 02/01/23 21:46 Dose: 8 mg Morphine Sulfate (Morphine Sulfate 10 Mg/Ml Syringe) 8 mg IVP ONCE STA Stop: 02/02/23 03:40 Last Admin: 02/02/23 03:50 Dose: 8 mg Nicotine (Nicotine 21 Mg Patch.Td24) 1 patch TD ONCE ONE Stop: 02/01/23 17:47 Last Admin: 02/01/23 17:55 Dose: 1 patch Nicotine (Nicotine 21 Mg Patch.Td24) 1 patch TD ONCE ONE Stop: 02/02/23 09:38 Last Admin: 02/02/23 09:39 Dose: 1 patch Non-Formulary Medication (Nictotine Patch) 21 mg TD ONCE ONE Stop: 02/02/23 09:34 Ondansetron HCl (Ondansetron Hcl/Pf 4 Mg/2 Ml Sdv) 4 mg IVP ONCE ONE Stop: 02/01/23 16:36 Last Admin: 02/01/23 16:56 Dose: 4 mg Ondansetron HCl (Ondansetron Hcl/Pf 4 Mg/2 Ml Sdv) 4 mg IVP ONCE ONE Stop: 02/01/23 21:31 Last Admin: 02/01/23 21:45 Dose: 4 mg Ondansetron HCl (Ondansetron Hcl/Pf 4 Mg/2 Ml Sdv) 4 mg IVP ONCE ONE Stop: 02/02/23 02:38 Last Admin: 02/02/23 02:43 Dose: 4 mg Review of Systems Constitutional: Reports Loss of appetite Head: Reports Normocephalic Eyes: Reports No symptoms Ears: Reports No symptoms Nose: Reports No symptoms Throat: Reports No symptoms Cardiovascular: Reports No symptoms Respiratory: Reports No symptoms Gastrointestinal: Reports Nausea, Vomiting and Abdominal pain (RUQ) Genitourinary: Reports No Symptoms Musculoskeletal: Reports No symptoms Endocrine: Reports No symptoms Hematology: Reports No symptoms Immunology: Reports No symptoms Neurological: Reports No symptoms Psychiatric: Reports No symptoms Physical examination Most Recent Vital Signs: Most Recent Vital Signs Temperature 98.2 F 02/02/23 10:10 Temperature Source Oral 02/02/23 10:10 Temperature Source Tympanic 02/01/23 19:17 Pulse Rate 107 H 02/02/23 10:10 Respiratory Rate 18 02/02/23 10:10 Blood Pressure 161/96 H 02/02/23 06:00 Blood Pressure Left Arm 152/118 02/02/23 10:10 Blood Pressure Position Sitting 02/02/23 10:10 O2 Sat by Pulse Oximetry 98 02/02/23 10:10 Oxygen Delivery Method Room Air 02/02/23 10:10 Height 5 ft 3 in 02/02/23 10:10 Weight 94 lb 02/02/23 10:10 Telemetry Type Remote Telemetry 02/02/23 10:29 Telemetry Monitoring Started 02/02/23 10:29 Telemetry Heart Rate 112 H 02/02/23 10:29 EKG ND Interval 0.16 02/02/23 10:29 EKG QRS Interval 0.05 L 02/02/23 10:[address] 02/02/23 10:29 Appearance: Positive No Apparent Distress, Alert and Oriented x3, Ill-Appearing, Thin and Cachectic Skin: Positive Warm, Good Turgor and Good Color HEENT: Positive Normocephalic Neck: Positive Supple and Midline Trachea Chest/Lungs: Positive Symmetrical With Equal Breath Sounds, Clear to Auscultation Bilaterally and Good Air Movement all 4 Lung Tripathi Heart: Positive RRR, Pulses Normal, No S3 Auscultated and No S4 Auscultated GI/: Positive Soft, Bowel Sounds Normal, Tender (RUQ) and Guarding Musculoskeletal: Positive Not Examined Extremities: Positive Intact Peripheral Pulses, Stable Joints Without Laxity and Good ROM in All Joints Neurological: Positive Sensation Intact, Motor intact, Reflexes Intact, Alert, Oriented and Muscle Strength 5/5 in Upper and Lower Extremities Bilaterally Psychiatric: Positive Oriented x4, Appropriate Mood, Appropriate Affect, Intact Memory, Good Short-Term Recall, Good Long-Term Recall, Normal Judgement and Normal Insight Labs This Visit Labs This Visit: Labs This Visit 02/01/23 02/01/23 02/01/23 16:40 16:45 22:00 WBC 21.75 H RBC 4.75 Hgb 14.7 Hct 41.6 MCV 87.6 MCH 30.9 MCHC 35.3 RDW Coeff of Jesus 13.1 Plt Count 377 Immature Gran % (Auto) 1.0 Neut % (Auto) 89.6 H Lymph % (Auto) 3.2 L [place] % (Auto) 5.5 Eos % (Auto) 0.5 Baso % (Auto) 0.2 Neut # (Auto) 19.5 H Lymph # (Auto) 0.7 [place] # (Auto) 1.2 Eos # (Auto) 0.1 Baso # (Auto) 0.0 Immature Gran # (Auto) 0.2 Neutrophils % (Manual) Lymphocytes % (Manual) Monocytes % (Manual) Anisocytosis Sodium 123.2 L Potassium 3.07 L Chloride 84.6 L Carbon Dioxide 30.3 H Anion Gap 11.37 BUN 5.4 L Creatinine 0.45 L Estimated GFR (MDRD) 168.00 BUN/Creatinine Ratio 12.00 Glucose 133.2 H Lactic Acid 3.83 H 1.19 D Calcium 8.59 Magnesium Total Bilirubin 0.72 AST 42.9 H ALT 41.3 H Alkaline Phosphatase 117.2 Total Protein 8.20 Albumin 4.22 Globulin 3.98 Albumin/Globulin Ratio 1.06 Lipase 676.3 H Procalcitonin 1.65 H Urine Color Yellow Urine Clarity Clear Urine pH 7.5 Ur Specific Preston 1.015 Urine Protein 2+ H Urine Glucose (UA) Negative Urine Ketones Negative Urine Blood 2+ H Urine Nitrite Negative Urine Bilirubin Negative Urine Urobilinogen 0.2 Ur Leukocyte Esterase 1+ H Urine Microscopic RBC 0-2 Urine Microscopic WBC 5-10 Ur Squamous Epith Cells 0-2 Ur Renal Epithelial Cell 2-5 Urine Bacteria Trace 02/02/23 07:09 WBC 13.66 H D RBC 4.11 L Hgb 12.6 Hct 36.2 L MCV 88.1 MCH 30.7 MCHC 34.8 RDW Coeff of Jesus 13.2 Plt Count 318 Immature Gran % (Auto) Neut % (Auto) Lymph % (Auto) [place] % (Auto) Eos % (Auto) Baso % (Auto) Neut # (Auto) Lymph # (Auto) [place] # (Auto) Eos # (Auto) Baso # (Auto) Immature Gran # (Auto) Neutrophils % (Manual) 85.0 H Lymphocytes % (Manual) 5.0 L Monocytes % (Manual) 10.0 Anisocytosis Not present Sodium 127.5 L Potassium 2.54 L* Chloride 94.8 L Carbon Dioxide 30.7 H Anion Gap 4.54 BUN 2.7 L Creatinine 0.39 L Estimated GFR (MDRD) 198.00 BUN/Creatinine Ratio 6.92 Glucose 83.7 Lactic Acid 0.76 D Calcium 7.27 L Magnesium 1.30 L Total Bilirubin 1.07 AST 38.7 H ALT 17.2 Alkaline Phosphatase 117.2 Total Protein 6.56 Albumin 3.24 L Globulin 3.32 Albumin/Globulin Ratio 0.97 Lipase Procalcitonin 0.96 H Urine Color Urine Clarity Urine pH Ur Specific Preston Urine Protein Urine Glucose (UA) Urine Ketones Urine Blood Urine Nitrite Urine Bilirubin Urine Urobilinogen Ur Leukocyte Esterase Urine Microscopic RBC Urine Microscopic WBC Ur Squamous Epith Cells Ur Renal Epithelial Cell Urine Bacteria Microbiology This Visit 02/01/23 16:59 Urine,Random Urine Culture - Preliminary Imaging Imaging: EXAM: CT ABDOMEN AND PELVIS FINDINGS: Elongated right hepatic lobe. The gallbladder is mildly distended and elongated. The pancreas has several coarse parenchymal calcifications at the level of the head suggesting evidence of chronic pancreatitis. Suggestion of calculi largest 5 mm within the distal main pancreatic duct (coronal image 37) and the pancreatic duct is dilated (6.5 mm). No evidence of acute pancreatitis. Spleen is within normal limits. Adrenal glands are unremarkable. Normal enhancement of the kidneys without hydronephrosis. Moderately severe atherosclerotic disease. The stomach is elongated and mildly distended, nonspecific. No bowel obstruction. No uterus is seen. Urinary bladder is within normal limits. No ascites or free air. No abdominal wall hernia. The bones and appear appropriate for age. Lung bases reveal chronic interstitial changes and mild atelectasis. IMPRESSION: 1. The gallbladder is mildly distended and elongated. 2. The pancreas has several coarse parenchymal calcifications at the level of the head suggesting evidence of chronic pancreatitis. Suggestion of calculi largest 5 mm within the distal main pancreatic duct (coronal image 37) and the pancreatic duct is dilated (6.5 mm). No evidence of acute pancreatitis. 3. Moderately severe atherosclerotic disease. 4. No bowel obstruction. No ascites or free air. EXAM: ABDOMINAL ULTRASOUND LIMITED FINDINGS: The liver is normal in echogenicity and measures 15.4 cm. The portal vein is patent. The gallbladder demonstrates layering sludge with no pericholecystic fluid. There is mild gallbladder fundal increased echogenicity with questionable ring down artifact. The gallbladder wall measures 4 mm. Common bile duct is unremarkable and measures 1.0 cm in diameter. The pancreas is unremarkable in appearance. IMPRESSION: 1. Gallbladder demonstrates questionable fundal adenomyomatosis. There is no pericholecystic fluid or evidence of acute cholecystitis. 2. Minimal layering sludge. 3. Prominent common duct. EXAM: MRI ABDOMEN WITHOUT AND WITH CONTRAST FINDINGS: No pericardial or pleural effusions. There is evidence of fat or iron deposition in the liver. No hepatic masses. The portal and hepatic veins are patent. The gallbladder is distended. There is mild intrahepatic biliary dilatation. No cholelithiasis or choledocholithiasis. The common bile duct is dilated to 0.7 cm. The pancreatic duct is dilated up to 0.6 cm. There are multiple intraductal calculi in the pancreatic duct at the head of the pancreas. The pancreas has decreased T1 signal and diminish enhancement. 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 No suspicious pancreatic masses. The spleen has normal size and signal. The adrenal glands have normal signal and morphology. Simple acquired renal cysts are noted. No suspicious renal masses or hydrone phrosis. The abdominal aorta has normal caliber and flow signal. No lymphadenopathy. There is suggestion of a small volume of pericholecystic fluid. The visible intestines have normal signal and caliber without evidence of obstruction or acute inflammation. The abdominal aorta has normal caliber and flow signal. No lymphadenopathy or ascites. No suspicious marrow signal. IMPRESSION: 1. Mild intrahepatic dilatation and common bile duct dilatation to 0.7 cm. No choledocholithiasis. Small volume of pericholecystic ascites. Possible stricture of the distal duct near the ampulla. Recommend correlation with ERCP. 2. Chronic pancreatitis. 3. Pancreatic duct dilatation and pancreatic duct calculi. Intraductal papillary mucinous mucinous neoplasm not excluded. 4. Simple acquired renal cysts. Review Statement Review Statement: I have independently reviewed and interpreted the labs/EKGs/imaging that were ordered by the ER provider. I have reviewed all outside records that are available currently in our EMR including imaging/notes/labs from previous visits. Plan Plan: 1. Sepsis in setting of cholecystitis - WBC initially 21 down to 13, started on zosyn in ER, given 2L NS, NS continued at 200mL/hr, blood cultures pending. 2. Cholecystitis - NPO, NS@200mL/hr, zosyn, zofran/reglan for nausea prn, morphine for pain prn, obtained US and MRCP, awaiting transfer to [facility] for ERCP 3. Hyponatremia - improving, continue NS@200mL/hr, repeat bmp now, telemetry 4. Hypokalemia - improving, replace and monitor, repeat bmp now, telemetry 5. Hypertension - chronic, continue home medications DVT Prophylaxis: Lovenox Time Spent: Greater than 80 minutes spent with patient, 50% of the time spent with this patient was devoted to counseling and coordination of care. [facility]annin minutes spent discussing advance care planning. Smoking Cessation: 5 minutes spent discussing smoking cessation. Disposition: Admit to: Med/Surg Observation Discussed Plan of Care with Dr. Louis Johnson. Spoke with [facility] to update on imaging. No changes in course of treatment at this time. Notify if patient becomes hemodynamically unstable. Awaiting bed to become available to transfer for ERCP. Medications Medication Orders: Medications Ordered Category Date Time Status 0.9 % Sodium Chloride [Saline Flush] Meds 02/01/23 16:29 Active 1 syr IVF PRN PRN Acetaminophen [Tylenol] Meds 02/02/23 09:51 Active 650 mg PO Q4H PRN Enoxaparin Sodium [Lovenox] Meds 02/02/23 10:00 Active 30 mg SUBCUT DAILY Losartan Potassium [Cozaar] Meds 02/02/23 13:30 Active 100 mg PO DAILY Metoclopramide HCl [Reglan] Meds 02/02/23 09:54 Active 10 mg IVP Q6H PRN Morphine Sulfate [Morphine 2 mg/ml Syringe] Meds 02/02/23 12:53 Active 2 mg IVP Q4H PRN Ondansetron HCl/Pf [Zofran 4 mg/2 ml] Meds 02/02/23 09:54 Active 4 mg IVP Q6H PRN Piperacillin Sodium/Tazobactam [Zosyn 3.375 gm] 3.375 Meds 02/02/23 12:00 Active gm 0.9 % Sodium Chloride [Sodium Chloride 100Ml] 100 ml IV Q6HR Sodium Chloride 0.9% [Sodium Chloride] 1,000 ml Meds 02/02/23 12:27 Active IV 200 mls/hr
[2023-02-02 15:03] LABS: CALCIUM 7.63 mg/dL (8.4-10.2); CHLORIDE 90.7 mmol/L (98-107); CREATININE 0.46 mg/dL (0.60-1.30); GLUCOSE 84.6 mg/dL (74-106); SODIUM 126.5 mmol/L (134.5-145)
[2023-02-02 15:05] LABS: POTASSIUM 2.54 mmol/L (3.5-5.1)
[2023-02-02] MEDS ORDERED: POTASSIUM CHLORIDE 20 MEQ/100 ML PREMIX 40 MEQ/200 ML BAG IV ONE (15:05)
[2023-02-02] MEDS ORDERED: K-DUR PO ONE (15:06)
[2023-02-02] MEDS: COZAAR PO SCH (15:20)
[2023-02-02] MEDS: NICODERM 21 MG TD SCH (15:20)
[2023-02-02] MEDS: MORPHINE 2 MG/ML SYRINGE IVP PRN ×2 (18:23→22:10)
[2023-02-02] MEDS ORDERED: DEXTROSE 50%-WATER ABBOJECT IVP STA (22:19)
[2023-02-02] MEDS ORDERED: DEXTROSE 5%-NS IV SOLUTION 1,000 ML IV SCH (22:30)
[2023-02-03 05:07] LABS: BASOPHILS % (AUTO) 0.1 % (0.0-3.0); EOSINOPHILS % (AUTO) 0.1 % (0.0-7.0); HEMATOCRIT 29.2 % (37.0-47.0); HEMOGLOBIN 10.2 g/dl (12.0-16.0); IMMATURE GRANULOCYTE # (AUTO) 0.1 (0.0-1.0); IMMATURE GRANULOCYTE % (AUTO) 0.5 % (0.0-5.0); LYMPHOCYTES % (AUTO) 8.5 (10.0-50.0); MEAN CORPUSCULAR HEMOGLOBIN 30.7 pg (27.0-31.0); MEAN CORPUSCULAR HGB CONC 34.9 (31.8-35.4); MONOCYTES # (AUTO) 0.8 K/uL (0.4-2.0); MONOCYTES % (AUTO) 7.3 (0-10); NEUTROPHILS # (AUTO) 9.4 K/ul (2.0-6.9); NEUTROPHILS % (AUTO) 83.5 % (42.2-75.2); PLATELET COUNT 248 10^3/uL (140-440); RED BLOOD COUNT 3.32 10^6/ul (4.20-5.40); WHITE BLOOD COUNT 11.27 K/ul (4.6-10.2)
[2023-02-03 05:17] LABS: ALBUMIN 2.53 g/dL (3.5-5.0); ALKALINE PHOSPHATASE 180.6 U/L (53-141); ASPARTATE AMINO TRANSFERASE 81.4 U/L (14-36); BILIRUBIN,TOTAL 0.68 mg/dL (0.2-1.3); BLOOD UREA NITROGEN 2.8 mg/dL (7-17); CALCIUM 6.43 mg/dL (8.4-10.2); CARBON DIOXIDE 29.4 mmol/L (22-30.0); CHLORIDE 97.5 mmol/L (98-107); CREATININE 0.44 mg/dL (0.60-1.30); GLUCOSE 86.6 mg/dL (74-106); LIPASE 125.1 U/L (23-300); SODIUM 124.9 mmol/L (134.5-145); TOTAL PROTEIN 5.5 g/dL (6.3-8.2)
[2023-02-03 05:32] LABS: POTASSIUM 2.62 mmol/L (3.5-5.1)
[2023-02-03] MEDS: ZOSYN 3.375 GM 3.375 GM in SODIUM CHLORIDE 100ML 100 ML IV SCH ×3 (05:33→17:56)
[2023-02-03] MEDS ORDERED: POTASSIUM CHLORIDE 20 MEQ/100 ML PREMIX 20 MEQ/100 ML BAG IV ONE (05:38)
[2023-02-03] MEDS: MORPHINE 2 MG/ML SYRINGE IVP PRN (07:29)
[2023-02-03] MEDS: COZAAR PO SCH (08:36)
[2023-02-03] MEDS: NICODERM 21 MG TD SCH (08:36)
[2023-02-03] MEDS: LOVENOX SUBCUT SCH (08:39)
[2023-02-03] MEDS: D5%-NS-KCL 40 MEQ/L IV SOL 1,000 ML IV SCH ×2 (10:17→21:24)
--- NOTE | 2023-02-03 11:38 | PCM.PROG ---
Date/Time Seen Date Seen by Provider: 02/03/23 Time Seen by Provider: 09:30 Provider [facility] Chief Complaint Chief Complaint: CHOLECYSTITIS Subjective Subjective: No fever or events overnight. Morphine controlling pain. No nausea. Requesting food. Objective Appearance: Positive No Apparent Distress, Alert and Oriented x3, Thin and Cachectic Chest/Lungs: Positive Symmetrical With Equal Breath Sounds, Clear to Auscultation Bilaterally and Good Air Movement all 4 Lung Tripathi Heart: Positive RRR and Pulses Normal GI/: Positive Soft, Bowel Sounds Normal, Tender and Rigidity Musculoskeletal: Positive Normal Gait and Station Neurological: Positive Sensation Intact, Motor intact, Reflexes Intact, Alert, Oriented and Muscle Strength 5/5 in Upper and Lower Extremities Bilaterally Vital Signs Vital Signs: Vital Signs: Last 24 Hours 02/02/23 14:00 02/02/23 13:00 02/02/23 19:00 Temperature 97.3 F L Temperature Source Temporal Artery Scan Pulse Rate 106 H Respiratory Rate 16 Blood Pressure 155/96 H Blood Pressure Mean 115 Blood Pressure Location Right Arm Blood Pressure Position O2 Sat by Pulse Oximetry 98 Oxygen Delivery Method Room Air Telemetry Type Remote Telemetry Remote Telemetry Telemetry Monitoring Continues Continues Telemetry Heart Rate 106 H 104 H EKG ID Interval 0.14 0.16 EKG QRS Interval 0.07 0.06 EKG QT Interval Telemetry Strip Reading ST ST 02/02/23 20:00 02/02/23 21:59 02/03/23 01:00 Temperature 99 F Temperature Source Temporal Artery Scan Pulse Rate 113 H Respiratory Rate 16 Blood Pressure 157/92 H Blood Pressure Mean 113 Blood Pressure Location Right Arm Blood Pressure Position Sitting O2 Sat by Pulse Oximetry 97 Oxygen Delivery Method Room Air Room Air Telemetry Type Remote Telemetry Telemetry Monitoring Continues Telemetry Heart Rate 99 EKG ID Interval 0.17 EKG QRS Interval 0.09 EKG QT Interval 0.36 Telemetry Strip Reading NSR no ectopy noted 02/03/23 02:30 02/03/23 05:32 02/03/23 10:00 Temperature 98.3 F 98.5 F 97.1 F L Temperature Source Oral Oral Temporal Artery Scan Pulse Rate 89 90 98 Respiratory Rate 16 14 16 Blood Pressure 128/76 121/67 150/93 H Blood Pressure Mean 93 85 112 Blood Pressure Location Left Arm Right Arm Right Arm Blood Pressure Position Supine Supine O2 Sat by Pulse Oximetry 96 98 98 Oxygen Delivery Method Room Air Room Air Room Air Telemetry Type Telemetry Monitoring Telemetry Heart Rate EKG ID Interval EKG QRS Interval EKG QT Interval Telemetry Strip Reading 02/03/23 07:00 02/03/23 08:00 Temperature Temperature Source Pulse Rate Respiratory Rate Blood Pressure Blood Pressure Mean Blood Pressure Location Blood Pressure Position O2 Sat by Pulse Oximetry Oxygen Delivery Method Room Air Telemetry Type Remote Telemetry Telemetry Monitoring Continues Telemetry Heart Rate 100 EKG ID Interval 0.13 EKG QRS Interval 0.04 L EKG QT Interval Telemetry Strip Reading SR Lab Results Lab Results: Lab Results: Last 24 Hours 02/03/23 02/02/23 02/01/23 04:50 14:18 16:45 WBC 11.27 H RBC 3.32 L Hgb 10.2 L Hct 29.2 L D MCV 88.0 MCH 30.7 MCHC 34.9 RDW Coeff of Jesus 13.0 Plt Count 248 Immature Gran % (Auto) 0.5 Neut % (Auto) 83.5 H Lymph % (Auto) 8.5 L [place] % (Auto) 7.3 Eos % (Auto) 0.1 Baso % (Auto) 0.1 Neut # (Auto) 9.4 H Lymph # (Auto) 1.0 [place] # (Auto) 0.8 Eos # (Auto) 0.0 Baso # (Auto) 0.0 Immature Gran # (Auto) 0.1 Sodium 124.9 L 126.5 L Potassium 2.62 L* 2.54 L* Chloride 97.5 L 90.7 L Carbon Dioxide 29.4 29.0 Anion Gap 0.62 9.34 BUN 2.8 L 3.0 L Creatinine 0.44 L 0.46 L Estimated GFR (MDRD) 172.00 164.00 BUN/Creatinine Ratio 6.36 6.52 Glucose 86.6 84.6 Calcium 6.43 L 7.63 L Total Bilirubin 0.68 AST 81.4 H D ALT 29.0 Alkaline Phosphatase 180.6 H D C-Reactive Prot, Quant 172 H Total Protein 5.50 L Albumin 2.53 L Globulin 2.97 Albumin/Globulin Ratio 0.85 Lipase 125.1 Additional Comments Additional Comments: I have independently reviewed and interpreted the labs/EKGs/imaging ordered during this hospital stay. I have reviewed outside records that are available in our EMR that pertain to medical stay including imaging/notes/labs from previous visits. Active Medications Active Medications: Medications Generic Name Dose Route Start Last Admin Trade Name Freq PRN Reason Stop Dose Admin Acetaminophen 650 mg 02/02/23 09:51 Acetaminophen 325 Mg Tablet PO Q4H PRN Mild Pain Enoxaparin Sodium 30 mg 02/02/23 10:00 02/03/23 08:39 Enoxaparin Sodium 30 Mg/0.3 Ml Syr SUBCUT 30 mg DAILY ELIAN Administration Piperacillin Sod/Tazobactam 100 mls @ 100 mls/hr 02/02/23 12:00 02/03/23 05:33 Sod 3.375 gm/ Sodium Chloride IV 02/05/23 11:59 100 mls/hr Q6HR ELIAN Administration Potassium Chloride/Dextrose/Sod Cl 1,000 mls @ 100 mls/hr 02/03/23 07:30 02/03/23 10:17 D5%-Ns-Kcl 40 Meq/L Iv Gwendolyn IV 100 mls/hr .Q10H ELIAN Administration Losartan Potassium 100 mg 02/02/23 13:30 02/03/23 08:36 Losartan Potassium 100 Mg Tablet PO 100 mg DAILY ELIAN Administration Metoclopramide HCl 10 mg 02/02/23 09:54 Metoclopramide Hcl 10 Mg/2 Ml IVP Q6H PRN Nausea / Vomiting Morphine Sulfate 2 mg 02/02/23 12:53 02/03/23 07:29 Morphine Sulfate 2 Mg/Ml Syringe IVP 2 mg Q4H PRN Administration MODERATE PAIN Nicotine 1 patch 02/02/23 15:00 02/03/23 08:36 Nicotine 21 Mg Patch.Td24 TD 1 patch DAILY ELIAN Administration Ondansetron HCl 4 mg 02/02/23 09:54 Ondansetron Hcl/Pf 4 Mg/2 Ml Sdv IVP Q6H PRN Nausea / Vomiting Sodium Chloride 1 syr 02/01/23 16:29 02/02/23 02:43 0.9% Sodium Chloride 10 Ml Disp.Syrin IVF 1 syr PRN PRN Administration To flush IV Plan Plan: 1. Sepsis in setting of cholecystitis - started on zosyn in ER, given 2L NS, D5NS+40mEqKCL@100mL/hr, blood cultures preliminary negative 2. 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 Hyponatremia - patient reports chronic, starting salt tabs, D5NS+40mEqKCL@100mL/hr, following labs, telemetry 4. Hypokalemia - patient reports chronic, taking KCL at home, replace and monitor, following labs, telemetry 5. Hypertension - chronic, continue home medications Patient is on waiting list for transfer at [facility], [facility] [place], and [facility] for higher level of care. Patient is currently hemodynamically stable. Review Statement Review Statement: I have personally discussed and reviewed the patient's visit/currently labs/imaging/decision making with Dr. Johnson, my supervising attending. Greater that 50 minutes spent with patient, 50% of the time spent with this patient was devoted to counseling and coordination of care.
[2023-02-04] MEDS: ZOSYN 3.375 GM 3.375 GM in SODIUM CHLORIDE 100ML 100 ML IV SCH ×5 (00:03→23:30)
[2023-02-04 05:27] LABS: BASOPHILS % (AUTO) 0.3 % (0.0-3.0); EOSINOPHILS % (AUTO) 0.3 % (0.0-7.0); HEMATOCRIT 29.2 % (37.0-47.0); HEMOGLOBIN 10.2 g/dl (12.0-16.0); IMMATURE GRANULOCYTE # (AUTO) 0.1 (0.0-1.0); IMMATURE GRANULOCYTE % (AUTO) 0.8 % (0.0-5.0); LYMPHOCYTES # (AUTO) 0.9 K/uL (0.60-3.4); LYMPHOCYTES % (AUTO) 11.9 (10.0-50.0); MEAN CORPUSCULAR HEMOGLOBIN 30.6 pg (27.0-31.0); MEAN CORPUSCULAR HGB CONC 34.9 (31.8-35.4); MEAN CORPUSCULAR VOLUME 87.7 fl (81.0-99.0); MONOCYTES % (AUTO) 12.4 (0-10); NEUTROPHILS # (AUTO) 5.9 K/ul (2.0-6.9); NEUTROPHILS % (AUTO) 74.3 % (42.2-75.2); PLATELET COUNT 287 10^3/uL (140-440); RDW COEFFICIENT OF VARIATION 12.9 % (11.6-14.8); RED BLOOD COUNT 3.33 10^6/ul (4.20-5.40); WHITE BLOOD COUNT 7.93 K/ul (4.6-10.2)
[2023-02-04 05:49] LABS: ALANINE AMINOTRANSFERASE 26.2 U/L (0-35); ALBUMIN 2.61 g/dL (3.5-5.0); ALKALINE PHOSPHATASE 145.3 U/L (53-141); ASPARTATE AMINO TRANSFERASE 50.1 U/L (14-36); BILIRUBIN,TOTAL 0.53 mg/dL (0.2-1.3); CALCIUM 7.34 mg/dL (8.4-10.2); CARBON DIOXIDE 28.5 mmol/L (22-30.0); CHLORIDE 98.6 mmol/L (98-107); CREATININE 0.37 mg/dL (0.60-1.30); GLUCOSE 134.5 mg/dL (74-106); LIPASE 324.6 U/L (23-300); POTASSIUM 3.04 mmol/L (3.5-5.1); SODIUM 128.3 mmol/L (134.5-145); TOTAL PROTEIN 5.71 g/dL (6.3-8.2)
[2023-02-04 06:10] LABS: BLOOD UREA NITROGEN < 2.0 mg/dL (7-17)
[2023-02-04] MEDS: NICODERM 21 MG TD SCH (09:19)
[2023-02-04] MEDS: SODIUM CHLORIDE PO SCH ×2 (09:20→20:22)
[2023-02-04] MEDS: K-DUR PO SCH ×2 (09:20→16:20)
[2023-02-04] MEDS: COZAAR PO SCH (09:21)
[2023-02-04] MEDS: D5%-NS-KCL 40 MEQ/L IV SOL 1,000 ML IV SCH ×3 (09:22→22:46)
[2023-02-04] MEDS: LOVENOX SUBCUT SCH (09:52)
[2023-02-04] MEDS: TYLENOL PO PRN (10:43)
--- NOTE | 2023-02-04 12:07 | PCM.PROG ---
Date/Time Seen Date Seen by Provider: 02/04/23 Time Seen by Provider: 08:40 Provider Provider: JESSA AVILEZ, [facility] Chief Complaint Chief Complaint: CHOLECYSTITIS Subjective Subjective: No events overnight. No fever. Feeling better. Tolerating clears. Still having abdominal pain. Objective Appearance: Positive No Apparent Distress, Alert and Oriented x3, Ill-Appearing, Thin and Cachectic Chest/Lungs: Positive Symmetrical With Equal Breath Sounds, Clear to Auscultation Bilaterally and Good Air Movement all 4 Lung Tripathi Heart: Positive RRR and Pulses Normal GI/: Positive Soft, Bowel Sounds Normal, Tender and Rigidity Musculoskeletal: Positive Normal Gait and Station Neurological: Positive Sensation Intact, Motor intact, Reflexes Intact, Alert, Oriented and Muscle Strength 5/5 in Upper and Lower Extremities Bilaterally Vital Signs Vital Signs: Vital Signs: Last 24 Hours 02/03/23 14:00 02/03/23 13:00 02/03/23 18:00 Temperature 97.2 F L 98.1 F Temperature Source Temporal Artery Scan Temporal Artery Scan Pulse Rate 106 H 100 Respiratory Rate 14 16 Blood Pressure 142/88 H 139/86 Blood Pressure Mean 106 103 Blood Pressure Location Left Arm Left Arm Blood Pressure Position O2 Sat by Pulse Oximetry 98 97 Oxygen Delivery Method Room Air Room Air Telemetry Type Remote Telemetry Telemetry Monitoring Continues Telemetry Heart Rate 106 H EKG DE Interval 0.11 L EKG QRS Interval 0.03 L Telemetry Strip Reading ST/SR 02/03/23 19:00 02/03/23 20:00 02/03/23 21:53 Temperature 96.9 F L Temperature Source Temporal Artery Scan Pulse Rate 93 Respiratory Rate 18 Blood Pressure 156/93 H Blood Pressure Mean 114 Blood Pressure Location Right Arm Blood Pressure Position Supine O2 Sat by Pulse Oximetry 97 Oxygen Delivery Method Room Air Room Air Telemetry Type Remote Telemetry Telemetry Monitoring Continues Telemetry Heart Rate 98 EKG DE Interval 0.14 EKG QRS Interval 0.06 Telemetry Strip Reading SR 02/04/23 01:41 02/04/23 01:00 02/04/23 05:36 Temperature 96.3 F L 96.0 F L Temperature Source Temporal Artery Scan Temporal Artery Scan Pulse Rate 93 93 Respiratory Rate 16 16 Blood Pressure 148/85 H 153/91 H Blood Pressure Mean 106 111 Blood Pressure Location Right Arm Right Arm Blood Pressure Position Supine Supine O2 Sat by Pulse Oximetry 95 95 Oxygen Delivery Method Room Air Room Air Telemetry Type Remote Telemetry Telemetry Monitoring Continues Telemetry Heart Rate 89 EKG DE Interval 0.16 EKG QRS Interval 0.06 Telemetry Strip Reading SR 02/04/23 10:00 02/04/23 07:00 Temperature 97.7 F Temperature Source Temporal Artery Scan Pulse Rate 97 Respiratory Rate 17 Blood Pressure 166/99 H Blood Pressure Mean 121 Blood Pressure Location Right Arm Blood Pressure Position Sitting O2 Sat by Pulse Oximetry 99 Oxygen Delivery Method Room Air Telemetry Type Remote Telemetry Telemetry Monitoring Continues Telemetry Heart Rate 85 EKG DE Interval 0.15 EKG QRS Interval 0.06 Telemetry Strip Reading nsr Lab Results Lab Results: Lab Results: Last 24 Hours 02/04/23 05:02 WBC 7.93 RBC 3.33 L Hgb 10.2 L Hct 29.2 L MCV 87.7 MCH 30.6 MCHC 34.9 RDW Coeff of Jesus 12.9 Plt Count 287 Immature Gran % (Auto) 0.8 Neut % (Auto) 74.3 Lymph % (Auto) 11.9 [place] % (Auto) 12.4 H Eos % (Auto) 0.3 Baso % (Auto) 0.3 Neut # (Auto) 5.9 Lymph # (Auto) 0.9 [place] # (Auto) 1.0 Eos # (Auto) 0.0 Baso # (Auto) 0.0 Immature Gran # (Auto) 0.1 Sodium 128.3 L Potassium 3.04 L Chloride 98.6 Carbon Dioxide 28.5 Anion Gap 4.24 BUN < 2.0 L Creatinine 0.37 L Estimated GFR (MDRD) 210.00 BUN/Creatinine Ratio 5.40 Glucose 134.5 H Calcium 7.34 L Total Bilirubin 0.53 AST 50.1 H D ALT 26.2 Alkaline Phosphatase 145.3 H D Total Protein 5.71 L Albumin 2.61 L Globulin 3.10 Albumin/Globulin Ratio 0.84 Lipase 324.6 H Additional Comments Additional Comments: I have independently reviewed and interpreted the labs/EKGs/imaging ordered during this hospital stay. I have reviewed outside records that are available in our EMR that pertain to medical stay including imaging/notes/labs from previous visits. Active Medications Active Medications: Medications Generic Name Dose Route Start Last Admin Trade Name Freq PRN Reason Stop Dose Admin Acetaminophen 650 mg 02/02/23 09:51 02/04/23 10:43 Acetaminophen 325 Mg Tablet PO 650 mg Q4H PRN Administration Mild Pain Enoxaparin Sodium 30 mg 02/02/23 10:00 02/04/23 09:52 Enoxaparin Sodium 30 Mg/0.3 Ml Syr SUBCUT 30 mg DAILY ELIAN Administration Piperacillin Sod/Tazobactam 100 mls @ 100 mls/hr 02/02/23 12:00 02/04/23 05:10 Sod 3.375 gm/ Sodium Chloride IV 02/05/23 11:59 100 mls/hr Q6HR ELIAN Administration Potassium Chloride/Dextrose/Sod Cl 1,000 mls @ 100 mls/hr 02/03/23 07:30 02/04/23 09:22 D5%-Ns-Kcl 40 Meq/L Iv Gwendolyn IV 100 mls/hr .Q10H ELIAN Administration Losartan Potassium 100 mg 02/02/23 13:30 02/04/23 09:21 Losartan Potassium 100 Mg Tablet PO 100 mg DAILY ELIAN Administration Metoclopramide HCl 10 mg 02/02/23 09:54 Metoclopramide Hcl 10 Mg/2 Ml IVP Q6H PRN Nausea / Vomiting Morphine Sulfate 2 mg 02/02/23 12:53 02/03/23 07:29 Morphine Sulfate 2 Mg/Ml Syringe IVP 2 mg Q4H PRN Administration MODERATE PAIN Nicotine 1 patch 02/02/23 15:00 02/04/23 09:19 Nicotine 21 Mg Patch.Td24 TD 1 patch DAILY ELIAN Administration Ondansetron HCl 4 mg 02/02/23 09:54 Ondansetron Hcl/Pf 4 Mg/2 Ml Sdv IVP Q6H PRN Nausea / Vomiting Potassium Chloride 20 meq 02/04/23 08:30 02/04/23 09:20 Potassium Chloride 20 Meq Tab PO 20 meq BIDWM ELIAN Administration Sodium Chloride 1 syr 02/01/23 16:29 02/02/23 02:43 0.9% Sodium Chloride 10 Ml Disp.Syrin IVF 1 syr PRN PRN Administration To flush IV Sodium Chloride 1 gm 02/04/23 09:00 02/04/23 09:20 Sodium Chloride 1 Gm Tablet PO 1 gm BID ELIAN Administration Plan Plan: 1. Sepsis in setting of cholecystitis - started on zosyn in ER, given 2L NS, D5NS+40mEqKCL@100mL/hr, blood cultures preliminary negative 2. 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 Hyponatremia - patient reports chronic, starting salt tabs, D5NS+40mEqKCL@100mL/hr, following labs, telemetry 4. Hypokalemia - patient reports chronic, taking KCL at home, replace and monitor, following labs, telemetry 5. Hypertension - chronic, continue home medications Patient on waiting list at [facility], [facility], and [facility]. Spoke with [facility] GI for update yesterday evening. GI recommended advancing diet over the next 24-48 hours. If able to tolerate food, okay to d/c with outpatient scheduled surgery. Review Statement Review Statement: I have personally discussed and reviewed the patient's visit/currently labs/imaging/decision making with Dr. Johnson, my supervising attending. Greater that 50 minutes spent with patient, 50% of the time spent with this patient was devoted to counseling and coordination of care.
[2023-02-04] MEDS: MORPHINE 2 MG/ML SYRINGE IVP PRN ×2 (17:54→22:38)
[2023-02-04] MEDS ORDERED: IMODIUM PO PRN (19:03)
[2023-02-05 04:57] LABS: BASOPHILS % (AUTO) 0.3 % (0.0-3.0); EOSINOPHILS # (AUTO) 0.1 K/ul (0.0-0.7); EOSINOPHILS % (AUTO) 1.1 % (0.0-7.0); HEMATOCRIT 29.9 % (37.0-47.0); HEMOGLOBIN 10.3 g/dl (12.0-16.0); IMMATURE GRANULOCYTE # (AUTO) 0.1 (0.0-1.0); IMMATURE GRANULOCYTE % (AUTO) 1.3 % (0.0-5.0); LYMPHOCYTES # (AUTO) 1.2 K/uL (0.60-3.4); LYMPHOCYTES % (AUTO) 20.2 (10.0-50.0); MEAN CORPUSCULAR HEMOGLOBIN 30.7 pg (27.0-31.0); MEAN CORPUSCULAR HGB CONC 34.4 (31.8-35.4); MONOCYTES # (AUTO) 1.1 K/uL (0.4-2.0); MONOCYTES % (AUTO) 17.1 (0-10); NEUTROPHILS # (AUTO) 3.7 K/ul (2.0-6.9); PLATELET COUNT 280 10^3/uL (140-440); RDW COEFFICIENT OF VARIATION 12.9 % (11.6-14.8); RED BLOOD COUNT 3.36 10^6/ul (4.20-5.40); WHITE BLOOD COUNT 6.14 K/ul (4.6-10.2)
[2023-02-05] MEDS: ZOSYN 3.375 GM 3.375 GM in SODIUM CHLORIDE 100ML 100 ML IV SCH (05:13)
[2023-02-05 05:19] LABS: ALANINE AMINOTRANSFERASE 23.3 U/L (0-35); ALBUMIN 2.63 g/dL (3.5-5.0); ALKALINE PHOSPHATASE 119.9 U/L (53-141); ASPARTATE AMINO TRANSFERASE 37.9 U/L (14-36); BILIRUBIN,TOTAL 0.29 mg/dL (0.2-1.3); CALCIUM 7.86 mg/dL (8.4-10.2); CARBON DIOXIDE 25.1 mmol/L (22-30.0); CHLORIDE 101.4 mmol/L (98-107); GLUCOSE 115.2 mg/dL (74-106); POTASSIUM 3.67 mmol/L (3.5-5.1); SODIUM 129.3 mmol/L (134.5-145); TOTAL PROTEIN 5.82 g/dL (6.3-8.2)
[2023-02-05 05:25] LABS: BLOOD UREA NITROGEN < 2.0 mg/dL (7-17)
[2023-02-05] MEDS: NICODERM 21 MG TD SCH (09:05)
[2023-02-05] MEDS: K-DUR PO SCH (09:06)
[2023-02-05] MEDS: SODIUM CHLORIDE PO SCH (09:06)
[2023-02-05] MEDS: COZAAR PO SCH (09:06)
[2023-02-05] MEDS: D5%-NS-KCL 40 MEQ/L IV SOL 1,000 ML IV SCH (09:07)
[2023-02-05] MEDS: LOVENOX SUBCUT SCH (09:11)
[2023-02-05 10:23] VITALS: BP 156/95; PULSE 113; RESP 17; TEMP 96.5
--- NOTE | 2023-02-05 10:51 | DCSUM ---
Admission Date Admission Date: 02/02/23 Discharge Date Discharge Date: 02/05/23 Admission Diagnosis Admission Diagnosis: Cholecystitis Discharge Diagnosis Discharge Diagnosis: Cholecystitis Hospital Provider Hospital Provider: JESSA AVILEZ, [facility] Primary Care Physician Primary Care Physician: MAC MCADAMS APRN, JESSA Summary of History and Physical Summary of History and Physical: 67-year-old female presented to the ER with complaints abdominal pain, nausea, vomiting, and concerns for dehydration. Patient states she has not been feeling well since around . Has had no appetite and has been unable to tolerate any liquids. Has complaints of right upper quadrant abdominal pain that she kerri cribes as a sharp stabbing pain. Nonradiating pain. No aggravating or relieving factors. Denies any fever that she is aware of. Denies any chest pain or shortness of breath. CT scan completed in the ER showed the gallbladder to be distended and dilated. Ultrasound was not in-house at the time. Patient was held in the ER overnight due to inability to transfer to another facility due to lack of beds available. Patient was accepted to [facility] awaiting a bed to open up. Ultrasound showed common bile duct dilation of 1 cm. 1. Sepsis in setting of cholecystitis - started on zosyn in ER, given 2L NS, D5NS+40mEqKCL@100mL/hr, blood cultures preliminary negative 2. 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 Hyponatremia - patient reports chronic, starting salt tabs, D5NS+40mEqKCL@ 100mL/hr, following labs, telemetry 4. Hypokalemia - patient reports chronic, taking KCL at home, replace and monitor, following labs, telemetry 5. Hypertension - chronic, continue home medications Hospital Course Subjective: Over course of stay, patient has been receiving zosyn for empiric antibiotic therapy. She was receiving IV fluids for hydration while NPO. During the last 2 days, her diet has been advanced and she is tolerating PO well without vomiting. Patient reports pain is better but still present but bearable. Initially, her sodium was found to be 123. With ivf and initiation of salt tabs, her sodium is at baseline of 129. She was also found to be hypokalemic at 2.5 which was replaced and resolved at 3.6. Patient has been waiting list at [facility] and [facility] since admission with no improvement of bed availability. During her stay an abdominal ultrasound and MRCP were completed awaiting transfer. Patient requesting to be able to go home now that her pain is controlled and she able to tolerate PO intake. Also requested to see a specialist locally if possible to complete her ERCP and possible surgery. Spoke with Dr. Madrid with [facility] in [place]. He agreed to see the patient is appropriate to see in the office, set her up for ERCP and decide need for surgery if needed. Appearance: Pleasant, No Apparent Distress, Alert and Well-appearing HEENT: MMM, Supple and No JVD CVS: No Murmur, No Rubs, No Gallop and No JVD Abdomen: Soft and No Distention Respiratory: No Dyspnea Extremities: No Edema Vital Signs: Most Recent Vital Signs Temperature 96.5 F L 02/05/23 10:00 Temperature Source Temporal Artery Scan 02/05/23 10:00 Temperature Source Tympanic 02/01/23 19:17 Pulse Rate 113 H 02/05/23 10:00 Respiratory Rate 17 02/05/23 10:00 Blood Pressure 156/95 H 02/05/23 10:00 Blood Pressure Mean 115 02/05/23 10:00 Blood Pressure Left Arm 152/118 02/02/23 10:10 Blood Pressure Location Left Arm 02/05/23 10:00 Blood Pressure Position Sitting 02/05/23 10:00 O2 Sat by Pulse Oximetry 99 02/05/23 10:00 Oxygen Delivery Method Room Air 02/05/23 10:00 Height 5 ft 3 in 02/02/23 10:10 Weight 94 lb 02/02/23 10:10 Telemetry Type Remote Telemetry 02/05/23 07:00 Telemetry Monitoring Continues 02/05/23 07:00 Telemetry Heart Rate 100 02/05/23 07:00 EKG KS Interval 0.12 02/05/23 07:00 EKG QRS Interval 0.07 02/05/23 07:00 EKG QT Interval 0.36 02/03/23 01:00 Telemetry Strip Reading NSR 02/05/23 07:00 Lab Results Last 24 Hours: 02/05/23 04:50 WBC 6.14 RBC 3.36 L Hgb 10.3 L Hct 29.9 L MCV 89.0 MCH 30.7 MCHC 34.4 RDW Coeff of Jesus 12.9 Plt Count 280 Immature Gran % (Auto) 1.3 Neut % (Auto) 60.0 Lymph % (Auto) 20.2 [place] % (Auto) 17.1 H Eos % (Auto) 1.1 Baso % (Auto) 0.3 Neut # (Auto) 3.7 Lymph # (Auto) 1.2 [place] # (Auto) 1.1 Eos # (Auto) 0.1 Baso # (Auto) 0.0 Immature Gran # (Auto) 0.1 Sodium 129.3 L Potassium 3.67 Chloride 101.4 Carbon Dioxide 25.1 Anion Gap 6.47 BUN < 2.0 L Creatinine 0.40 L Estimated GFR (MDRD) 192.00 BUN/Creatinine Ratio 5.00 Glucose 115.2 H Calcium 7.86 L Total Bilirubin 0.29 AST 37.9 H ALT 23.3 Alkaline Phosphatase 119.9 D Total Protein 5.82 L Albumin 2.63 L Globulin 3.19 Albumin/Globulin Ratio 0.82 Discharge Instructions Discharge Planning: Discharge Planning > 40 minutes If patient is discharged with left ventricular systolic dysfunction: no Discharged with a beta betina? [] If no, why not? [] Discharged with an chelle/arb? [] If no, why not? [] Complete course of antibiotics Start taking sodium chloride twice a day Regular diet as tolerated Activity as tolerated Follow-up with Dr. Madrid GI as scheduled Discharge Medications: Medications at Discharge (Home Meds & RX) aspirin 81 mg tablet,delayed release (Aspir-) 81 mg PO DAILY #30 tab-caps 12/27/18 albuterol sulfate 90 mcg/actuation aerosol inhaler (ProAir HFA) 2 puff inhalation Q4-6H PRN shortness of breath or wheezing #8.5 grams 01/10/21 hydrocodone 7.5 mg-acetaminophen 325 mg tablet 1 tab PO BID PRN pain 12/31/21 alendronate 70 mg tablet See Rx Instructions .Route .COMPLEX #12 tabs 12/08/22 losartan 100 mg tablet See Rx Instructions .Route .COMPLEX #90 tabs 12/08/22 albuterol sulfate 90 mcg/actuation aerosol inhaler 2 puff inhalation Q4-6H PRN shortness of breath or wheezing #16 grams 01/19/23 atorvastatin 40 mg tablet See Rx Instructions .Route .COMPLEX #90 tabs 01/22/23 omeprazole 20 mg capsule,delayed release See Rx Instructions .Route .COMPLEX #90 caps 01/30/23 Discharge Plan Discharge Activity Restrictions/Additional Instructions: Complete course of antibiotics Start taking sodium chloride twice a day Regular diet as tolerated Activity as tolerated Follow-up with Dr. Madrid GI as scheduled Instructions: Cholecystitis (GEN) Patient Disposition: HOME SELF-CARE Prescriptions: New potassium chloride 20 mEq Tablet,Er Particles/Crystals 20 meq PO DAILY Qty: 30 0RF sodium chloride 1,000 mg Tablet,Soluble 1,000 mg PO BID Qty: 60 0RF amoxicillin-pot clavulanate 875-125 mg tablet 1 tab PO BID Qty: 12 0RF Continued aspirin [Aspir-81] 81 MG tablet,delayed release (DR/EC) 81 mg PO DAILY Qty: 30 1RF alendronate 70 mg tablet See Rx Instructions .ROUTE .COMPLEX Qty: 12 0RF Dose Instruction: TAKE ONCE A WEEK WITH 8 OZ OF WATER AT LEAST 30 MIN. BEFORE FIRST FOOD/BEVERAG/DRUG OF THE DAY AND DON'T LIE DOWN FOR 30 MINUTES Rx Instructions: TAKE ONCE A WEEK WITH 8 OZ OF WATER AT LEAST 30 MIN. BEFORE FIRST FOOD/BEVERAG/DRUG OF THE DAY AND DON'T LIE DOWN FOR 30 MINUTES losartan 100 mg tablet See Rx Instructions .ROUTE .COMPLEX Qty: 90 1RF Dose Instruction: TAKE ONE TABLET DAILY GENERIC FOR COZAAR Rx Instructions: TAKE ONE TABLET DAILY GENERIC FOR COZAAR atorvastatin 40 mg tablet See Rx Instructions .ROUTE .COMPLEX Qty: 90 3RF Dose Instruction: TAKE ONE TABLET EVERY EVENING GENERIC FOR LIPITOR Rx Instructions: TAKE ONE TABLET EVERY EVENING GENERIC FOR LIPITOR omeprazole 20 mg capsule,delayed release(DR/EC) See Rx Instructions .ROUTE .COMPLEX Qty: 90 3RF Hold Instructions: Patient Refused Dose Instruction: TAKE 1 CAPSULE DAILY NEEDED GENERIC FOR PRILOSEC Rx Instructions: TAKE 1 CAPSULE DAILY NEEDED GENERIC FOR PRILOSEC hydrocodone-acetaminophen 7.5-325 mg tablet 1 tab PO BID PRN (Reason: pain) Patient Comments: [facility] [place]. albuterol sulfate [ProAir HFA] 90 mcg/actuation HFA aerosol inhaler 2 puff inhalation Q4-6H PRN (Reason: shortness of breath or wheezing) Qty: 8.5 3RF albuterol sulfate 90 mcg/actuation HFA aerosol inhaler 2 puff inhalation Q4-6H PRN (Reason: shortness of breath or wheezing) Qty: 16 3RF Did you review [place] [employer] [place] [employer] for ALL controlled substances?: No Discussed opioids are addictive and Narcan is available by prescription or from pharmacy.: No Condition: Fair
[2023-02-05] MEDS: TYLENOL PO PRN (11:43)
== END 2023-02-05 13:15 | disposition home or self-care (01) ==
LOC: ED 16:24 → MEDSURG B 16:24
PROVIDERS: ADMIT Hospitalist; ATTEND Nurse Practitioner Family
DX: R11.2 Nausea with vomiting, unspecified; K80.50 Calculus of bile duct without cholangitis or cholecystitis without obstruction; A41.9 Sepsis, unspecified organism; E87.1 Hypo-osmolality and hyponatremia; R00.0 Tachycardia, unspecified; R10.11 Right upper quadrant pain; I25.10 Atherosclerotic heart disease of native coronary artery without angina pectoris; Z79.899 Other long term (current) drug therapy; K86.1 Other chronic pancreatitis; R74.8 Abnormal levels of other serum enzymes; R10.13 Epigastric pain; R74.02 Elevation of levels of lactic acid dehydrogenase [LDH]; Z51.81 Encounter for therapeutic drug level monitoring; I10 Essential (primary) hypertension; D72.829 Elevated white blood cell count, unspecified; F17.210 Nicotine dependence, cigarettes, uncomplicated; N28.1 Cyst of kidney, acquired; N39.0 Urinary tract infection, site not specified; E87.6 Hypokalemia